=== PATIENT | male | born 1955 | race Caucasian/White ===

== ENCOUNTER → 2017-11-19 | Outpatient (CLI) | payer MEDICARE ==
[2017-11-19 09:08] LABS: CH 33.2; CHCM 34.4; HCT 43.5 % (39.0-53.0); HDW 2.78; HGB 14.6 gm/dL (13.0-17.5); MCH 32.6 pg (25.0-35.0); MCHC 33.6 g/dL (31.0-37.0); Mean Platelet Volume 7.2; RBC 4.49 m/uL (4.30-5.90); RDW 12.5 % (11.5-15.5); WBC 9.1 k/uL (3.8-10.6)
[2017-11-19 10:55] LABS: ALT 34 U/L (21-72); AST 38 U/L (17-59); Alkaline Phosphatase 97 U/L (38-126); Anion Gap 7 mmol/L; Blood Urea Nitrogen 18 mg/dL (9-20); Calcium 9.2 mg/dL (8.4-10.2); Carbon Dioxide 34 mmol/L (22-30); Chloride 98 mmol/L (98-107); Cholesterol 175 mg/dL (<200); Glucose 103 mg/dL (74-99); HDL Cholesterol 50 mg/dL (40-60); Non-African American GFR(MDRD) >60 (>60 ml/min/1.73 sqM); Potassium 4.5 mmol/L (3.5-5.1); Sodium 139 mmol/L (137-145); Total Bilirubin 0.5 mg/dL (0.2-1.3); Total Protein 6.9 g/dL (6.3-8.2)
[2017-11-19 16:54] LABS: Urine Creatinine 106.5 mg/dL
== END | disposition home or self-care (01) ==
LOC: LABWHC1 08:40
PROVIDERS: ATTEND Family Medicine
DX: I12.9 Hypertensive chronic kidney disease with stage 1 through stage 4 chronic kidney disease, or unspecified chronic kidney disease (principal); N18.9 Chronic kidney disease, unspecified; E78.2 Mixed hyperlipidemia; Z12.5 Encounter for screening for malignant neoplasm of prostate
CPT/HCPCS: 80061; 80053; 84443; 85027; 82043; 82570; 36415; G0103

== ENCOUNTER 2019-02-12 07:16 | Emergency (ER) | payer MEDICARE ==
[2019-02-12 07:31] VITALS: RESP 18
[2019-02-12] MEDS ORDERED: MORPHINE SULFATE 4 MG/ML SYRINGE IM STA (07:42)
--- NOTE | 2019-02-12 07:45 | ED ---
General Adult HPI - General Chief complaint: Fall Stated complaint: Fall/Knee Pain Time Seen by Provider: 02/12/19 07:32 Source: patient Mode of arrival: wheelchair Limitations: no limitations - History of Present Illness Initial comments: Dictation was produced using [employer] dictation software. please excuse any grammatical, word or spelling errors. Chief Complaint: 63-year-old male with past medical history of chronic pain secondary to degenerative back disease presents with right knee pain after fall. History of Present Illness: Patient 63-year-old male approximated 3 days ago he was fixing his motorcycle when he slipped. He states he landed on the front of his right knee. Patient was able to ambulate after the incident. Yesterday he states his pain progressively increased to the point were significant difficulties ambulating. Patient complains of point tenderness to the right anterior knee and right medial knee. Patient also complains of reproducible pain with knee flexion. Patient has history of multiple knee surgeries to bilateral knees. Denies any numbness or paresthesias to the bilateral extre mities The ROS documented in this emergency department record has been reviewed and confirmed by me. Those systems with pertinent positive or negative responses have been documented in the HPI. All other systems are other negative and/or noncontributory. PHYSICAL EXAM: General Impression: Alert and oriented x3, acute distress secondary to pain HEENT: Normocephalic atraumatic, extra-ocular movements intact, pupils equal and reactive to light bilaterally, mucous membranes moist. Cardiovascular: Heart regular rate and rhythm, S1&S2 audible, no murmurs, rubs or gallops Chest: Lungs clear to auscultation bilaterally, no rhonchi, no wheeze, no rales Abdomen: Bowel sounds present, abdomen soft, non-tender, non-distended, no organomegaly Musculoskeletal: Pulses present and equal in all extremities, no peripheral edema Motor: no focal deficits noted Neurological: CN II-XII grossly intact, no focal motor or sensory deficits noted Skin: Intact with no visualized rashes Psych: Normal affect and mood Right knee: Point tenderness to the patella and medial collateral ligament. Mild effusion when compared to the left knee. Completely x-ray was obtained showing no acute traumatic injuries. clinical presentation consistent with severe knee contusion. Patient placed in a knee immobilizer. Told to rest, ice and keep the knee elevated. Patient does have an established orthopedic surgeo n. Patient told to follow up with that surgeon early next week. Patient given prescription for analgesic medication to supplement his daily pain medication. Patient understandable and agreeable to plan. Patient has crutches at home. ED course: 63-year-old male presents with knee after incident 3 days ago. All signs upon arrival are within acceptable limits. - Related Data Previous Rx's Medication Instructions Recorded Morphine Sulfate Ir [MSIR] 15 mg PO Q6HR PRN 3 Days #6 tab 02/12/19 Allergies Allergy/AdvReac Type Severity Reaction Status Date / Time Penicillins Allergy Unknown Verified 02/12/19 08:17 Childhood Review of Systems ROS Statement: Those systems with pertinent positive or pertinent negative responses have been documented in the HPI. ROS Other: All systems not noted in ROS Statement are negative. Past Medical History Past Medical History: Hypertension Additional Past Medical History / Comment(s): chronic back pain History of Any Multi-Drug Resistant Organisms: None Reported Past Surgical History: Back Surgery, Orthopedic Surgery Past Psychological History: No Psychological Hx Reported Smoking Status: Former smoker Past Alcohol Use History: Occasional Past Drug Use History: None Reported General Exam Limitations: no limitations Course Vital Signs 02/12/19 07:27 Temperature 98.7 F Pulse Rate 65 Respiratory 18 Rate Blood Pressure 108/64 O2 Sat by Pulse 96 Oximetry Disposition Clinical Impression: Knee contusion Disposition: HOME SELF-CARE Condition: Good Instructions (If sedation given, give patient instructions): Knee Pain (ED) Additional Instructions: follow up with established orthopedic surgeon Prescriptions: Morphine Sulfate Ir [MSIR] 15 mg PO Q6HR PRN 3 Days #6 tab PRN Reason: Pain Is patient prescribed a controlled substance at d/c from ED?: Yes If prescribed controlled substance>3 days was MAPS reviewed?: Prescribed <3 Days Referrals: Robel Langley DO [Primary Care Provider] - 1-2 days Time of Disposition: 08:40
--- NOTE | 2019-02-12 08:06 | XR ---
EXAMINATION TYPE: XR knee complete RT , 3 VIEWS DATE OF EXAM ORDERED: 02/12/2019 HISTORY: Pain. COMPARISON: None. FINDINGS: There has been a previous anterior cruciate ligament repair. There is remodeling changes in both the medial and lateral compartments as well as to lesser extent t he patellofemoral joint. There is a prominent joint effusion. There is medial joint space loss. No ac [place] osseous lesion is seen. IMPRESSION: 1. NO ACUTE OSSEOUS LESION. 2. EVIDENCE OF OSTEOARTHRITIS. 3. POSTSURGICAL CHANGE.
[2019-02-12 09:01] VITALS: BP 111/63; PULSE 81; TEMP 97.9
== END 2019-02-12 09:00 | disposition home or self-care (01) ==
LOC: EC 07:16
DX: S80.01XA Contusion of right knee, initial encounter (principal); Z88.0 Allergy status to penicillin; Z98.890 Other specified postprocedural states; Z87.891 Personal history of nicotine dependence; W20.8XXA Other cause of strike by thrown, projected or falling object, initial encounter; Y93.89 Activity, other specified; Y92.009 Unspecified place in unspecified non-institutional (private) residence as the place of occurrence of the external cause
CPT/HCPCS: 73562; 99283; 96372; L1830; J2270

== ENCOUNTER 2019-12-15 11:13 | Emergency (ER) | payer MEDICARE ==
[2019-12-15 11:50] VITALS: BP 138/77; PULSE 69; RESP 19; TEMP 98.1
[2019-12-15] MEDS ORDERED: HYDROcodone/APAP 7.5-325MG 1 EACH TAB PO ONE (13:01)
--- NOTE | 2019-12-15 13:22 | XR ---
Left shoulder HISTORY: Pain 3 views of the left shoulder Mild acromioclavicular joint arthropathy is present. Bone mineralization may be slightly reduced. Ali gnment and joint spaces are maintained. No fracture or dislocation. Left lung apex as visualized is n ormal. IMPRESSION: Acromioclavicular joint arthropathy. Suspect osteopenia.
--- NOTE | 2019-12-15 13:41 | ED ---
General Adult HPI - General Chief complaint: Extremity Injury, Upper Stated complaint: lt shoulder pain Time Seen by Provider: 12/15/19 12:45 Source: patient, RN notes reviewed, old records reviewed Mode of arrival: ambulatory Limitations: no limitations - History of Present Illness Initial comments: 64-year-old male patient past history significant for chronic back pain presents to ED for cheif complaint of left shoulder injury. Patient reports he as getting off a reclining chair yesterday when he pushed up with his left arm and felt a pop and pain in his left shoulder. Patient reports that he has pain in his left anterior shoulder and decreased range of motion secondary to pain. Denies any pain or any other places. Denies any fall. Denies any other complaints. Systemic: Pt denies fatigue, fever/chills, rash. Pt denies weakness, night sweats, weight loss. Neuro: Pt denies headache, visual disturbances, syncope or pre-syncope. HEENT: Pt denies ocular discharge or irritation, otalgia, rhinorrhea, pharyngitis or notable lymphadenopathy. Cardiopulmonary: Pt denies chest pain, SOB, heart palpitations, dyspnea on exertion. Abdominal/GI: Pt denies abdominal pain, n/v/d. : Pt denies dysuria, burning w/ urination, frequency/urgency. Denies new onset urinary or bowel incontinence. MSK: Pt denies loss of strength or function in extremities. Neuro: Pt denies new onset weakness, paresthesias. - Related Data Previous Rx's Medication Instructions Recorded Morphine Sulfate Ir [MSIR] 15 mg PO Q6HR PRN 3 Days #6 tab 02/12/19 Allergies Allergy/AdvReac Type Severity Reaction Status Date / Time Penicillins Allergy Unknown Verified 02/12/19 08:17 Childhood Review of Systems ROS Statement: Those systems with pertinent positive or pertinent negative responses have been documented in the HPI. ROS Other: All systems not noted in ROS Statement are negative. Past Medical History Past Medical History: Hypertension Additional Past Medical History / Comment(s): chronic back pain History of Any Multi-Drug Resistant Organisms: None Reported Past Surgical History: Back Surgery, Orthopedic Surgery Past Psychological History: No Psychological Hx Reported Smoking Status: Former smoker Past Alcohol Use History: Occasional Past Drug Use History: Marijuana General Exam - General Exam Comments Initial Comments: Constitutional: NAD, AOX3, Pt has pleasant affect. HEENT: NC/AT, trachea midline, neck supple, no lymphadenopathy. Posterior pharynx non erythematous, without exudates. External ears appear normal, without discharge. Mucous membranes moist. Eyes PERRLA, EOM intact. There is no scleral icterus. No pallor noted. Cardiopulmonary: RRR, no murmurs, rubs or gallops, no JVD noted. Lungs CTAB in anterior and posterior andrew. No peripheral edema. Abdominal exam: Abdomen soft and non-distended. Abdomen non-tender to palpation in all 4 quadrants. Bowel sounds active in LLQ. No hepatosplenomegaly. No ecchymosis Neuro: CN II-XII grossly intact. No nuchal rigidity. No raccon eyes, no burks sign, no hemotympanum. No cervical spinal tenderness. MSK: Left anterior shoulder is mildly tender to palpation. Range of motion limited secondary to discomfort. Neurovascularly intact. No other areas of tenderness on upper extremity. No posterior calf tenderness bilaterally, homans sign negative bilaterally. Posterior tibialis and radial pulse +2 bilaterally. Sensation intact in upper and lower extremities. Full active ROM in right upper extremity and lower extremities. Limitations: no limitations Course Vital Signs 12/15/19 11:49 Temperature 98.1 F Pulse Rate 69 Respiratory 19 Rate Blood Pressure 138/77 O2 Sat by Pulse 95 Oximetry Medical Decision Making - Medical Decision Making 64-year-old male patient past history significant for chronic back pain presents to ED for cheif complaint of left shoulder injury. Patient reports he as getting off a reclining chair yesterday when he pushed up with his left arm and felt a pop and pain in his left shoulder. Patient reports that he has pain in his left anterior shoulder and decreased range of motion secondary to pain. Denies any pain or any other places. Denies any fall. Denies any other complaints. Patient will signs are stable, afebrile. Physical exam displayed: Left anterior shoulder is mildly tender to palpation. Range of motion limited secondary to discomfort. Neurovascularly intact. No other areas of tenderness on upper extremity. Chest x-ray displayed acromioclavicular joint arthropathy. Osteopenia. Patient likely secondary to rotator cuff injury. Patient discharged with outpatient orthopedic follow-up. Case discussed with Dr. Chavez Disposition Clinical Impression: Shoulder sprain Disposition: HOME SELF-CARE Instructions (If sedation given, give patient instructions): Shoulder Sprain (ED) Additional Instructions: Follow-up with primary care provider tomorrow. Follow with orthopedic consult tomorrow. May use home pain medication for discomfort. Return to ER if condition worsens. Is patient prescribed a controlled substance at d/c from ED?: No Referrals: Robel Langley DO [Primary Care Provider] - 1-2 days iBmal Louis MD [STAFF PHYSICIAN] - 1-2 days
[2019-12-15] MEDS ORDERED: ACET/COD 300 MG/30 MG STARTER PACK 6 TAB BTL PO STA (13:50)
--- NOTE | 2019-12-15 13:51 | ED ---
Disposition Clinical Impression: Shoulder sprain Disposition: HOME SELF-CARE Instructions (If sedation given, give patient instructions): Shoulder Sprain (ED) Additional Instructions: Follow-up with primary care provider tomorrow. Follow with orthopedic consult tomorrow. May use home pain medication for discomfort. Do not use Tylenol 3 with [place]. Must use one or the other. Return to ER if condition worsens. Is patient prescribed a controlled substance at d/c from ED?: No Referrals: Robel Langley DO [Primary Care Provider] - 1-2 days Bimal Louis MD [STAFF PHYSICIAN] - 1-2 days
== END 2019-12-15 14:00 | disposition home or self-care (01) ==
LOC: EC 11:13
DX: S43.402A Unspecified sprain of left shoulder joint, initial encounter (principal); M19.012 Primary osteoarthritis, left shoulder; Z87.891 Personal history of nicotine dependence; Z88.0 Allergy status to penicillin; X50.9XXA Other and unspecified overexertion or strenuous movements or postures, initial encounter; Y93.89 Activity, other specified
CPT/HCPCS: 99284

== ENCOUNTER 2020-01-17 11:52 | Day surgery (SDC) | payer MEDICARE ==
[2020-01-12 14:17] VITALS: BMI 44.7
--- NOTE | 2020-01-16 11:38 | HP ---
HISTORY AND PHYSICAL CHIEF COMPLAINT: Left shoulder pain. HISTORY OF PRESENT ILLNESS: The patient is a 64-year-old, left-hand dominant, retired male who presents with left shoulder pain after a recent injury. He notes he was lifting himself out of a chair when he felt a pop in his shoulder. He has had pain ever since. He is having pain with overhead use and at night. He has tried medications and conservative modalities without much relief. PAST MEDICAL HISTORY: Significant for hypertension, seizures, depression, and arthritis along with reflux esophagitis, depression. PAST SURGICAL HISTORY: Significant for bilateral carpal tunnel release, bilateral total hip arthroplasty, previous lumbar spine surgery, and appendectomy. CURRENT MEDICATIONS: Atenolol, [place], Requip, Ultram. ALLERGIES: HE HAS ALLERGIES TO PENICILLIN. FAMILY HISTORY: Significant for cancer. SOCIAL HISTORY: Significant for previous tobacco use in addition to daily alcohol use. REVIEW OF SYSTEMS: Sixteen-point review of systems otherwise reviewed and is noncontributory. PHYSICAL EXAMINATION: On examination, the patient is approximately 6 feet tall, 300 pounds, of endomorphic habitus. HEENT examination is nonfocal. Neck is supple. On examination of his left shoulder, he is tender about the anterior subacromial space. He has moderate subacromial crepitus. Active range of motion: Forward elevation 50 degrees external rotation with arm at side, 20 degrees internal rotation to the buttock. Passively, I am able to forward elevate him to 140 degrees. He has marked guarding. Impingement test, Neer test, Speed test are positive. He does have some pain with cross body adduction. His distal neurovascular examination appears intact in the left upper extremity. RADIOLOGIC DATA: MRI scan report left shoulder was reviewed and shows a rotator cuff tear along with bicipital tendinosis. IMPRESSION: 1. Acute left rotator cuff tear - symptomatic. 2. Left proximal bicipital tendinosis. 3. Left acromioclavicular joint arthritis. RECOMMENDATIONS: I talked to the patient at length regarding his condition along with treatment options. At this point, he is quite symptomatic and limited after this acute injury despite conservative measures. After thorough discussion, he opts to proceed with surgery. We will plan to proceed with left shoulder arthroscopy with subacromial decompression, possible rotator cuff repair versus debridement, possible biceps tenotomy, and possible distal clavicular resection. We will likely perform that as an outpatient procedure. Risks and benefits were discussed at length in layman's terms. MMODL / IJN: [id number] /
[~2020-01-17 11:52] MED LIST: HYDROmorphone 0.5 MG/0.5 ML SYRINGE IVP PRN; LACTATED RINGERS 1,000 ML IV SCH; LIDOCAINE 1% 20 ML VIAL (10MG/ML) FOR IV START INTRADERMA PRN; ONDANSETRON 4 MG/2 ML VIAL IVP ONE; ceFAZolin 3 GM in SODIUM CHLORIDE 0.9% 100 ML IVPB ONE
[2020-01-17] MEDS ORDERED: CLINDAMYCIN 900 MG in DEXTROSE 5% IN WATER 50 ML IVPB STA ×2 (12:08)
[2020-01-17] MEDS ORDERED: DEXAMETHASONE SOD PHOSPHATE 10 MG/ML 1 ML VIAL IV ONE (12:26)
[2020-01-17] MEDS ORDERED: MIDAZOLAM 2 MG/2 ML VIAL IVP ONE ×2 (12:41)
[2020-01-17] MEDS ORDERED: fentaNYL (PF) 50 MCG/ML 2 ML AMP IVP ONE ×2 (12:41)
[2020-01-17] MEDS ORDERED: PROPOFOL 10 MG/ML 20 ML VIAL IV ONE (13:11)
[2020-01-17] MEDS ORDERED: PHENYLEPHRINE-0.9% NACL SYG 1 MG/10 ML SYRINGE ONE (13:11)
[2020-01-17] MEDS ORDERED: SUCCINYLCHOLINE CHLORIDE VIAL 200 MG/10 ML VIAL IV ONE (13:11)
[2020-01-17] MEDS ORDERED: ePHEDrine SULFATE/0.9% NACL/PF 50 MG/5 ML SYRINGE IV ONE (13:11)
[2020-01-17] MEDS ORDERED: fentaNYL (PF) 50 MCG/ML 2 ML AMP ONE (13:11)
[2020-01-17] MEDS ORDERED: DEXAMETHASONE SOD PHOSPHATE 4 MG/ML 1 ML VIAL ONE (13:11)
[2020-01-17] MEDS ORDERED: LIDOCAINE 1% INJ 10MG/ML (20 ML MDV) ONE (13:11)
[2020-01-17] MEDS ORDERED: ROPIVACAINE 5 MG/ML 30 ML VIAL ONE (13:11)
--- NOTE | 2020-01-17 13:33 | P.ANPRN ---
Procedure Note - Anesthesia - Nerve Block Performed Left Interscalene Single Time Out Performed: Yes Date of Procedure: 01/17/20 Procedure Start Time: 12:40 Procedure Stop Time: 12:55 Location of Patient: PreOp Indication: Acute Post-Operative Pain, Requested by Surgeon Specifically requested for management of pain by DrAliya: Bimal Louis Sedation Type: Sedate with meaningful contact maintained Preparation: Sterile Prep Position: Supine Catheter: None Needle Types: Pajunk Needle Gauge: 21 Ultrasound used to visualize needle placement: Yes Ultrasound used to observe medication spread: Yes Injectate: 0.5% Ropivacaine (see comment for volume) (20 cc) Blood Aspirated: No Pain Paresthesia on Injection Noted: No Resistance on Injection: Normal Image Stored and Saved: Yes Events: Uneventful and Well Tolerated
[2020-01-17] MEDS ORDERED: EPINEPHrine (PF) 1 ML in SODIUM CHLORIDE 0.9% IRRIGATIO 3,000 ML IRRIGATION ONE ×8 (13:46)
[2020-01-17] MEDS ORDERED: LACTATED RINGERS 1,000 ML IV ONE (15:18)
--- NOTE | 2020-01-17 15:22 | P.OP ---
Date of Procedure: 01/17/20 Preoperative Diagnosis: Symptomatic left rotator cuff tear Postoperative Diagnosis: 4 cm left rotator cuff tear with retraction, high-grade partial-thickness tear long head of the biceps Procedure(s) Performed: Left shoulder arthroscopic subacromial decompression/rotator cuff repair/biceps tenotomy Implants: Arthrex 5.5 mm swivel lock anchor 4 Anesthesia: kamala ELIZALDE Surgeon: Bimal Louis Butt Presser #1: Miguel Angel Blackwood Estimated Blood Loss (ml): 10 Pathology: none sent Condition: stable Disposition: PACU Indications for Procedure: The patient's a 64-year-old [id number] male who presents after injuring his left shoulder recently with persistent pain and weakness despite conservative measures. A discussion of the risks and benefits of operative intervention versus continued conservative measures was made with the patient. He opted to proceed with surgery. Operative risks to include infection, neurovascular injury, development of blood clots, possible tendon rerupture, possible postoperative stiffness and need for subsequent procedures was discussed. Informed consent was obtained. Operative Findings: As below Description of Procedure: The patient was brought to the operating room, and after induction of general anesthesia was placed in a beachchair position. A preoperative interscalene block was placed for postoperative analgesia. I examined the left shoulder. There was no gross block to passive motion or gross glenohumeral instability. The left upper extremity was prepped and draped in normal fashion. The bony outlines the acromion, distal clavicle, and coracoid process were outlined with a skin marker. The glenohumeral joint was inflated with 50 mL of saline utilizing a spinal needle from posterior approach. A posterior portal was made through a 5 mm skin incision 1 cm medial and inferior to the posterior lateral border time. A blunt trocar was used to easily into the joint. Diagnostic arthroscopy was performed. An anterior portal was made just lateral to the coracoid process entering the joint above the subscapularis tendon. The subscapularis tendon appeared to be intact. Anterior labrum was intact. The inferior recess was inspected. The posterior labrum was intact. There was a high-grade partial-thickness tear of the long head of the biceps involving interarticular portion. It was elected to proceed with release at this point. This was released from the superior labrum with electrocautery and was allowed to retract to the bicipital groove. On inspection the rotator cuff, a large 4 cm tear involving the supraspinatus and infraspinatus was noted and was retracted almost to the glenoid. A lateral portal was made 2 centimeters inferior to the anterior lateral border of the acromion. The rotator cuff was then mobilized with a traction suture. This was then brought back to the greater tuberosity. The soft tissue on the undersurface of the acromion was debrided with a motorized shaver and electrocautery clearly defining the anterior medial and lateral borders as well as the distal clavicle. An anterior inferior acromioplasty was performed with a motorized doris starting anterolateral, then extending this posteriorly, then extending this medially. I converted to a flat acromion and this was verified in the posterior and lateral viewing portals. The greater tuberosity was lightly decorticating with a shaver down to a bleeding bony surface. An accessory superior lateral portal was made just off the lateral edge of the acromion for anchor placement. 2 anchors were then placed just off the articular surface with the appropriate starting awl. 5.5 mm anchors preloaded with #2 fiber tape were placed. Good purchase was obtained. These fiber tapes were then passed the rotator cuff with a scorpion suture passer. A lateral row was created crisscrossing these tapes. 5.5 mm swivel lock anchors x 2 were placed laterally. Good purchase was obtained. Final arthroscopic view showed adequate compression at the footprint. The arthroscope was then removed. The portals were closed with simple 3-0 nylon sutures. A sterile dressing was applied in addition to an abductor brace. The patient was then awoken from general anesthesia and transferred to recovery room in good condition. Blood loss was estimated at 10 mL. No complications were incurred. Sponge and needle counts were correct in the case. Sam DONOVAN assisted and the major components of the case to include arm positioning, anchor placement, and rotator cuff repair.
[2020-01-17 15:44] VITALS: TEMP 97.2
[2020-01-17 16:40] VITALS: BP 138/80; PULSE 84; RESP 20
== END 2020-01-17 17:00 | disposition home or self-care (01) ==
LOC: OR 11:52
PROVIDERS: ATTEND Orthopaedic Surgery
DX: M75.102 Unspecified rotator cuff tear or rupture of left shoulder, not specified as traumatic (principal); S46.112A Strain of muscle, fascia and tendon of long head of biceps, left arm, initial encounter; X50.0XXA Overexertion from strenuous movement or load, initial encounter; I12.9 Hypertensive chronic kidney disease with stage 1 through stage 4 chronic kidney disease, or unspecified chronic kidney disease; N18.1 Chronic kidney disease, stage 1; F32.9 Major depressive disorder, single episode, unspecified; M19.90 Unspecified osteoarthritis, unspecified site; K21.0 Gastro-esophageal reflux disease with esophagitis; Z96.643 Presence of artificial hip joint, bilateral; Z80.9 Family history of malignant neoplasm, unspecified; G40.401 Other generalized epilepsy and epileptic syndromes, not intractable, with status epilepticus; Z87.891 Personal history of nicotine dependence; G89.29 Other chronic pain; M54.9 Dorsalgia, unspecified; E66.9 Obesity, unspecified; Z68.42 Body mass index [BMI] 45.0-49.9, adult; F41.1 Generalized anxiety disorder; M96.1 Postlaminectomy syndrome, not elsewhere classified; I45.9 Conduction disorder, unspecified; Z96.652 Presence of left artificial knee joint; Z80.8 Family history of malignant neoplasm of other organs or systems; Z80.7 Family history of other malignant neoplasms of lymphoid, hematopoietic and related tissues; Z80.3 Family history of malignant neoplasm of breast; F51.01 Primary insomnia; G25.81 Restless legs syndrome; Z79.891 Long term (current) use of opiate analgesic; Z97.3 Presence of spectacles and contact lenses; Z79.899 Other long term (current) drug therapy; Z91.030 Bee allergy status; Z88.0 Allergy status to penicillin
CPT/HCPCS: 64415; 76942; 29826; 29827; C1713 ×4; J2250; J0330; J1100 ×2; J2405; J0171; J2001; J3010; J2795; J2370; J2704

== ENCOUNTER → 2020-02-02 | Outpatient (CLI) | payer MEDICARE ==
[2020-02-02 10:27] LABS: Basophils # (A) 0.1 k/uL (0-0.2); Basophils % (A) 1 %; Eosinophils # (A) 0.2 k/uL (0-0.7); Eosinophils % (A) 2 %; HCT 40.5 % (39.0-53.0); HGB 13.2 gm/dL (13.0-17.5); Lymphocytes # (A) 1.7 k/uL (1.0-4.8); Lymphocytes % (A) 13 %; MCH 32.1 pg (25.0-35.0); MCHC 32.7 g/dL (31.0-37.0); MCV 98.1 fL (80.0-100.0); Mean Platelet Volume 6.8; Monocytes # (A) 0.9 k/uL (0-1.0); Monocytes % (A) 7 %; Neutrophils # (A) 9.4 k/uL (1.3-7.7); Neutrophils % (A) 75 %; Platelet Count 382 k/uL (150-450); RBC 4.12 m/uL (4.30-5.90); RDW 13.1 % (11.5-15.5); WBC 12.5 k/uL (3.8-10.6)
[2020-02-02 12:51] LABS: Erythrocyte Sedimentation Rate 87 mm/hr (0-15)
== END ==
LOC: LABWHC1 09:30
PROVIDERS: ATTEND Orthopaedic Surgery
DX: M25.519 Pain in unspecified shoulder (principal)
CPT/HCPCS: 36415; 85025; 85652; 86140

== ENCOUNTER 2020-02-03 05:44 | Day surgery (SDC) | payer MEDICARE ==
--- NOTE | 2020-02-02 20:25 | HP ---
HISTORY AND PHYSICAL CHIEF COMPLAINT: Left shoulder pain. HISTORY OF PRESENT ILLNESS: The patient is a 64-year-old [id number] retired gentleman who underwent left shoulder arthroscopic rotator cuff repair on 01/17/2020. He presents with a 2-day history of drainage from one of his portal sites. He notes some low-grade fevers. He has been wearing his brace. PAST MEDICAL HISTORY: Significant for depression, hypertension and seizures. PAST SURGICAL HISTORY: Significant for appendectomy, bilateral carpal tunnel release, bilateral total knee arthroplasty, lumbar spine surgery, in addition to recent left shoulder arthroscopic rotator cuff repair. CURRENT MEDICATIONS: 1. Atenolol. 2. [place]. 3. Requip. 4. Ultram. ALLERGIES: He notes allergies to PENICILLIN. FAMILY HISTORY: Significant for cancer. SOCIAL HISTORY: Significant for social alcohol use. He is a former smoker. REVIEW OF SYSTEMS: Sixteen-point review of systems significant for recent low-grade fevers. PHYSICAL EXAMINATION: The patient is approximately 6 feet tall, 300 pounds of endomorphic habitus. HEENT: Exam is nonfocal. Neck is supple. On examination of his left shoulder, he does have some purulent drainage about the lateral portal site with some surrounding erythema. He has limited range of motion of the left shoulder secondary to pain. His distal neurovascular exam appears intact in the left upper extremity. LABORATORY STUDIES: Laboratory studies show sed rate of 87 along with peripheral white blood cell count of 12.5. IMPRESSION: Status post left shoulder arthroscopic rotator cuff repair with portal site cellulitis, possible deep infection. RECOMMENDATIONS: I talked to the patient and his at length regarding his condition and treatment options. At this point we will plan to proceed with incision and drainage of his left shoulder with probable arthroscopic irrigation and debridement. Risks and benefits were discussed at length in layman's terms. We will likely keep the patient in the hospital after the procedure until cultures finalize and antibiotic treatment is planned. MMODL / IJN: [id number] /
[~2020-02-03 05:44] MED LIST changes: -HYDROmorphone 0.5 MG/0.5 ML SYRINGE IVP PRN; -LACTATED RINGERS 1,000 ML IV SCH; -LIDOCAINE 1% 20 ML VIAL (10MG/ML) FOR IV START INTRADERMA PRN; -ONDANSETRON 4 MG/2 ML VIAL IVP ONE; +Pre Op ABX Message 1 EACH MISC MISCELLANE ONE; -ceFAZolin 3 GM in SODIUM CHLORIDE 0.9% 100 ML IVPB ONE
[2020-02-03] MEDS ORDERED: HYDROmorphone 0.5 MG/0.5 ML SYRINGE IVP PRN (07:52)
[2020-02-03] MEDS ORDERED: DEXAMETHASONE SOD PHOSPHATE 10 MG/ML 1 ML VIAL IV ONE (07:52)
[2020-02-03] MEDS ORDERED: SCOPOLAMINE 1.5MG/72HR PATCH TRANSDERM ONE (07:52)
[2020-02-03] MEDS ORDERED: ONDANSETRON 4 MG/2 ML VIAL IVP ONE (07:52)
[2020-02-03] MEDS ORDERED: LIDOCAINE 1% (10MG/ML) FOR IV START INTRADERMA PRN (07:52)
[2020-02-03] MEDS: LACTATED RINGERS 1,000 ML IV SCH (08:25)
[2020-02-03] MEDS ORDERED: HYDROmorphone 0.5 MG/0.5 ML SYRINGE IVP ONE (08:40)
[2020-02-03] MEDS ORDERED: VANCOMYCIN IV PER PHARMACY 1 EACH MISC MISCELLANE PRN (10:08)
[2020-02-03] MEDS ORDERED: VANCOMYCIN 2,250 MG in SODIUM CHLORIDE 0.9% 500 ML 500 ML IVPB ONE (10:30)
[2020-02-03] MEDS ORDERED: MIDAZOLAM 2 MG/2 ML VIAL ONE (10:43)
[2020-02-03] MEDS ORDERED: ePHEDrine SULFATE/0.9% NACL/PF 50 MG/5 ML SYRINGE IV ONE (10:43)
[2020-02-03] MEDS ORDERED: LIDOCAINE 1% INJ 10MG/ML (20 ML MDV) ONE (10:43)
[2020-02-03] MEDS ORDERED: PROPOFOL 10 MG/ML 20 ML VIAL IV ONE (10:43)
[2020-02-03] MEDS ORDERED: SUCCINYLCHOLINE CHLORIDE VIAL 200 MG/10 ML VIAL IV ONE (10:43)
[2020-02-03] MEDS ORDERED: PHENYLEPHRINE-0.9% NACL SYG 1 MG/10 ML SYRINGE ONE (10:43)
[2020-02-03] MEDS ORDERED: fentaNYL (PF) 50 MCG/ML 2 ML AMP ONE (10:43)
--- NOTE | 2020-02-03 12:05 | P.OP ---
Date of Procedure: 02/03/20 Preoperative Diagnosis: Left shoulder cellulitis/septic arthritis status post arthroscopic rotator cuff repair Postoperative Diagnosis: Same Procedure(s) Performed: Incision and drainage with irrigation and debridement left shoulder/arthroscopic debridement and lavage Anesthesia: FIDE Surgeon: Bimal Louis Hse Advisor #1: Miguel Angel Blackwood Estimated Blood Loss (ml): 10 Pathology: other (Deep cultures) Condition: stable Disposition: PACU Indications for Procedure: The patient's a 64-year-old male who underwent left shoulder arthroscopic rotator cuff repair approximately 2 weeks who presented with a two-day history of progressive pain, swelling, and redness. Upon evaluation he was noted to have an infected portal site. Laboratory studies showed significant elevation of his sed rate and C-reactive protein. He discussion of the risks and benefits of operative intervention was made with patient. He opted to proceed. Operative risks to include persistence of infection and need for subsequent procedures was discussed. Informed consent was obtained. Operative Findings: As below Description of Procedure: The patient was brought to the operating room, and after induction of general anesthesia was placed in the beachchair position. Bony prominences were appropriately padded. The left upper extremity was prepped and draped in normal fashion. Cultures were obtained from the lateral portal and subacromial space. The previous posterior portal was utilized once and medial medial and inferior to the posterior lateral border of the acromion. A blunt trocar was used to easily into the joint. A moderate effusion was encountered. Arthroscopic evaluation showed evidence of marked articular synovitis that was debrided with a motorized shaver. The cartilage surfaces did not appear to be affected. This was copiously irrigated with 6 L of fluid. The rotator cuff appeared intact on the articular surface. The arthroscope was placed in the subacromial space. Again there was marked bursitis debrided with a motorized shaver. The subacromial space was copiously irrigated with 6 L of fluid. Rotator cuff appeared to be intact on the bursal surface. The arthroscope was then removed. The lateral portal was extended proximal a 5 mm and the wound edges sharply debrided with a scalpel. This was further irrigated with saline. The portals were loosely reapproximated with simple 3-0 nylon suture. A sterile dressing was applied in addition to a sling. The patient was awoken from general anesthesia and transferred to the recovery room in fair condition. Blood loss was estimated at 10 mL. No complications were incurred. Sponge and needle counts were correct at the end of the case.
[2020-02-03] MEDS ORDERED: ONDANSETRON 4 MG/2 ML VIAL IVP PRN (12:39)
[2020-02-03] MEDS ORDERED: LACTATED RINGERS 1,000 ML IV ONE (13:00)
[2020-02-03 15:30] LABS: Basophils % (A) 0 %; Eosinophils # (A) 0.1 k/uL (0-0.7); Eosinophils % (A) 1 %; HCT 39.8 % (39.0-53.0); HGB 12.9 gm/dL (13.0-17.5); Lymphocytes % (A) 7 %; MCH 32.1 pg (25.0-35.0); MCHC 32.5 g/dL (31.0-37.0); MCV 98.8 fL (80.0-100.0); Mean Platelet Volume 7.2; Monocytes # (A) 0.4 k/uL (0-1.0); Monocytes % (A) 3 %; Neutrophils # (A) 12.7 k/uL (1.3-7.7); Neutrophils % (A) 88 %; Platelet Count 372 k/uL (150-450); RBC 4.03 m/uL (4.30-5.90); WBC 14.4 k/uL (3.8-10.6)
[2020-02-03] MEDS ORDERED: EPINEPHrine 1 MG/ML 1 ML AMP IM PRN (15:35)
--- NOTE | 2020-02-03 15:40 | P.CONS ---
History of Present Illness - Reason for Consult Leukocytosis - History of Present Illness She is a pleasant 64-year-old male came in for left shoulder incision and drainage/arthroscopic debridement. Patient has a bandage to the left shoulder area. Pain is fairly well-controlled did not pass gas did not move his bowels.. Patient the does have history of sleep apnea and doesn't use any CPAP machine patient denied any fever chills, dysuria. No evidence of any infection at this time Review of Systems REVIEW OF SYSTEMS: CONSTITUTIONAL: No fever, no malaise, no fatigue. HEENT: No recent visual problems or hearing problems. Denied any sore throat. CARDIOVASCULAR: No chest pain, orthopnea, PND, no palpitations, no syncope. PULMONARY: No shortness of breath, no cough, no hemoptysis. GASTROINTESTINAL: No diarrhea, no nausea, no vomiting, no abdominal pain. NEUROLOGICAL: No headaches, no weakness, no numbness. HEMATOLOGICAL: Denies any bleeding or petechiae. GENITOURINARY: Denies any burning micturition, frequency, or urgency. MUSCULOSKELETAL/RHEUMATOLOGICAL: As mentioned in HPI ENDOCRINE: Denies any polyuria or polydipsia. The rest of the 14-point review of systems is negative. Past Medical History Past Medical History: Hypertension Additional Past Medical History / Comment(s): steroid Dec 2019,left shoulder pain,chronic back pain History of Any Multi-Drug Resistant Organisms: None Reported Past Surgical History: Adenoidectomy, Appendectomy, Back Surgery, Joint Replacement, Orthopedic Surgery, Tonsillectomy Additional Past Surgical History / Comment(s): hardware lumbar area,rt knee procedures x7,lt knee proceduresx3,left knee replaced x2,sinus procedures x2, mary carpel tunnel,tendon repair mary hands,mary feet procedures Past Anesthesia/Blood Transfusion Reactions: No Reported Reaction Additional Past Anesthesia/Blood Transfusion Reaction / Comm: no hx blood transfusion Past Psychological History: Anxiety Smoking Status: Former smoker Past Alcohol Use History: Occasional Additional Past Alcohol Use History / Comment(s): quit smoking 1993,smoked ap prox 20 yrs > 1ppd Past Drug Use History: None Reported - Past Family History Mother Family Medical History: Cancer Father Family Medical History: Cancer Medications and Allergies Home Medications Medication Instructions Recorded Confirmed Type Atenolol [Tenormin] 100 mg PO HS 01/12/20 02/03/20 History Citalopram Hydrobromide [CeleXA] 40 mg PO HS 01/12/20 02/03/20 History Cyclobenzaprine [Flexeril] 10 mg PO TID PRN 01/12/20 02/03/20 History Diazepam [Valium] 2 mg PO HS PRN 01/12/20 02/03/20 History EPINEPHrine (Auto Inject) [Epipen] 0.3 mg IM ONCE PRN 01/12/20 02/03/20 History Furosemide [Lasix] 40 mg PO DAILY PRN 01/12/20 02/03/20 History HYDROcodone/APAP 7.5-325MG [[place] 2 tab PO BID PRN 01/12/20 02/03/20 History 7.5-325] Hydrochlorothiazide 25 mg PO HS 01/12/20 02/03/20 History Ibuprofen 800 mg PO Q8H PRN 01/12/20 02/03/20 History Phenytoin Sodium Extended 400 mg PO HS 01/12/20 02/03/20 History [Dilantin] RABEprazole SODIUM [Aciphex] 20 mg PO HS 01/12/20 02/03/20 History rOPINIRole HCL [rOPINIRole HCL ER] 2 mg PO HS 01/12/20 02/03/20 History traMADol HCL [Ultram] 50 mg PO HS PRN 01/12/20 02/03/20 History HYDROcodone/APAP 10-325MG [[place] 1 tab PO Q4HR PRN 7 Days #28 tab 01/17/20 0 02/03/20 Rx 10-325] Allergies Allergy/AdvReac Type Severity Reaction Status Date / Time bee venom protein (honey bee) Allergy Anaphylaxis Verified 02/03/20 08:02 Penicillins Allergy Anaphylaxis Verified 02/03/20 08:02 Physical Exam Vitals: Vital Signs Temp Pulse Pulse Resp BP BP Pulse Ox 02/03/20 13:05 78 16 133/60 97 02/03/20 12:50 82 18 120/59 95 02/03/20 12:35 81 18 124/61 94 L 02/03/20 12:20 84 18 133/64 100 02/03/20 12:12 18 100 02/03/20 12:05 97.8 F 85 18 132/68 99 02/03/20 08:13 97.6 F 68 16 152/78 94 L Intake and Output 02/03/20 02/03/20 02/03/20 06:59 14:59 22:59 Intake Total 1775 Output Total 10 Balance 1765 Intake: IV 1774 Output: Estimated Blood Loss 10 Other: # Voids 1 Weight 156 kg PHYSICAL EXAMINATION: GENERAL: The patient is alert and oriented x3, not in any acute distress. Well developed, well nourished. HEENT: Pupils are round and equally reacting to light. EOMI. No scleral icterus. No conjunctival pallor. Normocephalic, atraumatic. No pharyngeal erythema. No thyromegaly. CARDIOVASCULAR: S1 and S2 present. No murmurs, rubs, or gallops. PULMONARY: Chest is clear to auscultation, no wheezing or crackles. ABDOMEN: Soft, nontender, nondistended, normoactive bowel sounds. No palpable organomegaly. MUSCULOSKELETAL: Left shoulder is postsurgically packed EXTREMITIES: No cyanosis, clubbing, or pedal edema. NEUROLOGICAL: Gross neurological examination did not reveal any focal deficits. SKIN: No rashes. Results CBC & Chem 7: 02/03/20 15:14 Labs: Abnormal Lab Results - Last 24 Hours (Table) 02/03/20 Range/Units 15:14 WBC 14.4 H (3.8-10.6) k/uL RBC 4.03 L (4.30-5.90) m/uL Hgb 12.9 L (13.0-17.5) gm/dL Neutrophils # 12.7 H (1.3-7.7) k/uL Assessment and Plan Plan: -Leukocytosis no evidence of infection will further intervention at this time -Hypertension atenolol will be resumed will hold off on diuretic therapy as patient is receiving IV fluids at this time -Sleep apnea uses CPAP machine at home which will be continued -Anxiety disorder -Left shoulder incision and drainage: Blood cultures cultures are pending and patient is on iv vancomycin which is appropriate
[2020-02-03 15:41] LABS: African American GFR (CKD) >90 (>60 ml/min/1.73 sqM); Anion Gap 9 mmol/L; Blood Urea Nitrogen 13 mg/dL (9-20); C Reactive Protein 40.3 mg/L (<10.0); Carbon Dioxide 29 mmol/L (22-30); Chloride 99 mmol/L (98-107); Glucose 193 mg/dL (74-99); Non-African American GFR(CKD) >90 (>60 ml/min/1.73 sqM); Potassium 4.7 mmol/L (3.5-5.1); Sodium 137 mmol/L (137-145)
[2020-02-03 16:36] LABS: Erythrocyte Sedimentation Rate 90 mm/hr (0-15)
[2020-02-03] MEDS: HYDROcodone/APAP 10-325MG 1 EACH TAB PO PRN ×2 (16:58→22:04)
[2020-02-03] MEDS: ATENOLOL 50 MG TAB PO SCH (20:32)
[2020-02-03] MEDS: CITALOPRAM HYDROBROMIDE 20 MG TAB PO SCH (20:32)
[2020-02-03] MEDS: PHENYTOIN SODIUM EXTENDED 100 MG CAP PO SCH (20:32)
[2020-02-03] MEDS: PANTOPRAZOLE 40 MG TABLET PO SCH (20:32)
[2020-02-03] MEDS: CYCLOBENZAPRINE 10 MG TAB PO PRN (20:35)
[2020-02-03] MEDS: VANCOMYCIN 2,250 MG in SODIUM CHLORIDE 0.9% 500 ML 500 ML IVPB SCH (22:04)
[2020-02-04] MEDS: HYDROcodone/APAP 10-325MG 1 EACH TAB PO PRN ×4 (03:06→19:15)
[2020-02-04] MEDS: CYCLOBENZAPRINE 10 MG TAB PO PRN (05:13)
[2020-02-04] MEDS: LACTATED RINGERS 1,000 ML IV SCH (07:37)
[2020-02-04] MEDS: VANCOMYCIN 2,250 MG in SODIUM CHLORIDE 0.9% 500 ML 500 ML IVPB SCH ×3 (07:37→22:33)
[2020-02-04 08:45] LABS: Basophils # (A) 0.1 k/uL (0-0.2); Basophils % (A) 0 %; Eosinophils # (A) 0.1 k/uL (0-0.7); Eosinophils % (A) 1 %; HCT 38.2 % (39.0-53.0); HGB 12.7 gm/dL (13.0-17.5); Lymphocytes # (A) 2.9 k/uL (1.0-4.8); Lymphocytes % (A) 19 %; MCH 33.1 pg (25.0-35.0); MCHC 33.1 g/dL (31.0-37.0); MCV 99.9 fL (80.0-100.0); Mean Platelet Volume 7.1; Monocytes # (A) 1.4 k/uL (0-1.0); Monocytes % (A) 9 %; Neutrophils # (A) 10.1 k/uL (1.3-7.7); Neutrophils % (A) 67 %; Platelet Count 371 k/uL (150-450); RBC 3.83 m/uL (4.30-5.90); WBC 14.9 k/uL (3.8-10.6)
--- NOTE | 2020-02-04 09:51 | P.PN ---
Subjective Progress Note Date: 02/04/20 Principal diagnosis: Status post incision and drainage with irrigation and debridement left shoulder/left shoulder arthroscopic debridement and lavage Patient was evaluated today at bedside. He's having some generalized pain around the shoulder. Denies any fevers or chills at this time. Utilizing the arm sling. Objective - Vital Signs Vital signs: Vital Signs Temp 98.3 F 02/04/20 07:00 Pulse 64 02/04/20 07:00 Resp 17 02/04/20 07:00 BP 137/78 02/04/20 07:00 Pulse Ox 95 02/04/20 07:00 Intake & Output 02/03/20 02/04/20 02/04/20 18:59 06:59 18:59 Intake Total 1775 296 296 Output Total 10 Balance 1765 296 296 Weight 156 kg Intake: IV 1775 Oral 296 296 Output: Estimated Blood Loss 10 Other: # Voids 1 2 - Exam Left upper extremity: Postoperative management was removed. Portal sites are all closed with one single nylon, there is no active drainage. Erythema has improved. Tenderness with palpation is also improved. Sensation to light touch throughout the upper extremities intact. Radial pulses 2+ - Labs CBC & Chem 7: 02/04/20 07:20 02/03/20 15:14 Labs: Abnormal Lab Results - Last 24 Hours (Table) 02/03/20 02/03/20 02/04/20 Range/Units 15:14 15:14 07:20 WBC 14.4 H 14.9 H (3.8-10.6) k/uL RBC 4.03 L 3.83 L (4.30-5.90) m/uL Hgb 12.9 L 12.7 L (13.0-17.5) gm/dL Hct 38.2 L (39.0-53.0) % Neutrophils # 12.7 H 10.1 H (1.3-7.7) k/uL Monocytes # 1.4 H (0-1.0) k/uL ESR 90 H (0-15) mm/hr Creatinine 0.61 L (0.66-1.25) mg/dL Glucose 193 H (74-99) mg/dL C-Reactive Protein 40.3 H (<10.0) mg/L Microbiology - Last 24 Hours (Table) 02/03/20 11:50 Gram Stain - Preliminary Shoulder - Left Wound Culture - Preliminary 02/03/20 11:50 Gram Stain - Preliminary Shoulder - Left Wound Culture - Preliminary 02/03/20 11:50 Anaerobic Culture - Preliminary Shoulder - Left 02/03/20 11:50 Anaerobic Culture - Preliminary Shoulder - Left Assessment and Plan Plan: Assessment: Left shoulder cellulitis/septic arthritis Status post incision and drainage is irrigation and debridement left shoulder/left shoulder arthroscopic debridement and lavage Plan: Continue daily dressing changes Continue use of the arm sling Ice the shoulder often Pain control, will adjust oral medication Continue current IV antibiotics Infectious disease recommendations Internal medicine recommendations Anticipate continuation of inpatient stay until cultures are finalized and antibiotic choices made Time with Patient: Less than 30
--- NOTE | 2020-02-04 10:09 | CONS ---
CONSULTATION DATE OF SERVICE: 02/03/2020 REASON FOR CONSULTATION: Left shoulder septic arthritis. HISTORY OF PRESENT ILLNESS: The patient is a 64-year-old male who underwent left shoulder arthroscopic rotator cuff repair on January 17, 2020. The patient is presenting back to his orthopedic surgeon with a 2-day history of drainage from one of his portal sites along with low-grade fever. The patient has also been complaining of pain to the left shoulder area to be more often throbbing in nature, intensity almost 10/10 in severity. The patient is complaining of low-grade fever. Denies having any URI symptoms. No chest pain, shortness of breath or cough. No nausea or vomiting. No abdominal pain. No diarrhea. With these symptoms, the patient was evaluated and subsequently has been admitted to hospital and was taken to the OR, where he had I&D and debridement of the left shoulder and lavage. Wound culture has been obtained. The patient received a dose of vancomycin and has been admitted to the hospital. Infectious Disease was consulted for further recommendations regarding antibiotic. Patient with no fever during this admission. He did have elevated white count of 14,000 with an elevated sed rate and CRP. REVIEW OF SYSTEMS: Positive points have been mentioned in HPI. Rest of the systems are negative. PAST MEDICAL HISTORY: Significant for depression, hypertension, seizure disorder, osteoarthritis. PAST SURGICAL HISTORY: Appendectomy, bilateral carpal tunnel release, bilateral knee arthroplasty, lumbar spine surgery and recent left shoulder rotator cuff repair. SOCIAL HISTORY: Patient denies smoking. Social drinker. No drug use. FAMILY HISTORY: Positive for cancer. ALLERGIES: PENICILLIN with history of rash. No history of anaphylaxis. CURRENT MEDICATIONS: The patient is currently on [place], Tenormin, Celexa, Flexeril, Dilaudid, Zofran, Protonix, Dilantin, Requip and vancomycin, Pharmacy to dose. PHYSICAL EXAMINATION: Blood pressure 131/68, pulse of 85, temperature 98.7. General description is an elderly male up in the chair in no distress. No tachypnea or accessory muscle of respiration use. HEENT examination shows no pallor or scleral icterus. Oral mucosa membrane is dry. No pharyngeal erythema or thrush. NECK: Trachea is central. No thyromegaly. LUNGS: Unlabored breathing. Clear to auscultation anteriorly. No wheeze or crackle. HEART: S1, S2. Regular rate and rhythm. ABDOMEN: Soft. No tenderness. No guarding or rigidity. EXTREMITIES: No edema of the feet. The left shoulder is currently dressed up. No obvious drainage on the dressing. LABS: Hemoglobin is 12.9, white count 14.4. Sed rate is 90, creatinine 0.61, and CRP 40.3. DIAGNOSTIC IMPRESSION AND PLAN: Patient with left shoulder infection in this patient who did have a recent left rotator cuff repair with recent surgery, subsequently developing infection from one of the ports. That has been debrided. Will likely need to cover for the Gram-positive skin amanda, especially MRSA to be likely present, responsible for this infection. With the patient's PENICILLIN ALLERGY, that will limit the number of antibiotics safe to use. PLAN: 1. Vancomycin, Pharmacy to dose. Start while waiting for the culture to finalize. 2. Blood cultures x2. 3. We will follow his clinical condition and cultures to further adjust medication if needed. Thank you for this consultation. Will follow this patient along with you. MMODL / IJN: [id number] /
[2020-02-04] MEDS: traMADol 50 MG TAB PO SCH ×3 (11:14→21:29)
[2020-02-04] MEDS ORDERED: SENNOSIDES 8.6 MG TAB PO PRN (11:55)
[2020-02-04] MEDS: POLYETHYLENE GLYCOL 3350 17 GM POWD.PACK PO SCH (12:12)
--- NOTE | 2020-02-04 12:28 | P.PN ---
Subjective Principal diagnosis: PHYSICAL EXAMINATION: GENERAL: The patient is alert and oriented x3, not in any acute distress. Well developed, well nourished. HEENT: Pupils are round and equally reacting to light. EOMI. No scleral icterus. No conjunctival pallor. Normocephalic, atraumatic. No pharyngeal erythema. No thyromegaly. CARDIOVASCULAR: S1 and S2 present. No murmurs, rubs, or gallops. PULMONARY: Chest is clear to auscultation, no wheezing or crackles. ABDOMEN: Soft, nontender, nondistended, normoactive bowel sounds. No palpable organomegaly. MUSCULOSKELETAL: Left shoulder is postsurgically packed EXTREMITIES: No cyanosis, clubbing, or pedal edema. NEUROLOGICAL: Gross neurological examination did not reveal any focal deficits. SKIN: No rashes. No overnight events patient is coming of constipation. Ordered Senna and MiraLAX. Constitutional: Denied any fatigue denied any fever. Cardio vascular: denied any chest pain, palpitations Gastrointestinal denied any nausea vomiting Pulmonary: Denied any shortness of breath cough Neurologic denied any new focal deficits All inpatient medications were reviewed and appropriate changes in these medications as dictated in the interval history and assessment and plan. Objective - Vital Signs Vital signs: Vital Signs Temp 98.3 F 02/04/20 07:00 Pulse 64 02/04/20 07:00 Resp 17 02/04/20 08:00 BP 137/78 02/04/20 07:00 Pulse Ox 95 02/04/20 07:00 Intake & Output 02/03/20 02/04/20 02/04/20 18:59 06:59 18:59 Intake Total 1775 296 296 Output Total 10 Balance 1765 296 296 Weight 156 kg Intake: IV 1775 Oral 296 296 Output: Estimated Blood Loss 10 Other: # Voids 1 2 - Exam PHYSICAL EXAMINATION: GENERAL: The patient is alert and oriented x3, not in any acute distress. Well developed, well nourished. HEENT: Pupils are round and equally reacting to light. EOMI. No scleral icterus. No conjunctival pallor. Normocephalic, atraumatic. No pharyngeal erythema. No thyromegaly. CARDIOVASCULAR: S1 and S2 present. No murmurs, rubs, or gallops. PULMONARY: Chest is clear to auscultation, no wheezing or crackles. ABDOMEN: Soft, nontender, nondistended, normoactive bowel sounds. No palpable organomegaly. MUSCULOSKELETAL: Left shoulder is postsurgically packed EXTREMITIES: No cyanosis, clubbing, or pedal edema. NEUROLOGICAL: Gross neurological examination did not reveal any focal deficits. SKIN: No rashes. - Labs CBC & Chem 7: 02/04/20 07:20 02/03/20 15:14 Labs: Abnormal Lab Results - Last 24 Hours (Table) 02/03/20 02/03/20 02/04/20 Range/Units 15:14 15:14 07:20 WBC 14.4 H 14.9 H (3.8-10.6) k/uL RBC 4.03 L 3.83 L (4.30-5.90) m/uL Hgb 12.9 L 12.7 L (13.0-17.5) gm/dL Hct 38.2 L (39.0-53.0) % Neutrophils # 12.7 H 10.1 H (1.3-7.7) k/uL Monocytes # 1.4 H (0-1.0) k/uL ESR 90 H (0-15) mm/hr Creatinine 0.61 L (0.66-1.25) mg/dL Glucose 193 H (74-99) mg/dL C-Reactive Protein 40.3 H (<10.0) mg/L Microbiology - Last 24 Hours (Table) 02/03/20 11:50 Gram Stain - Preliminary Shoulder - Left Wound Culture - Preliminary 02/03/20 11:50 Gram Stain - Preliminary Shoulder - Left Wound Culture - Preliminary 02/03/20 11:50 Anaerobic Culture - Preliminary Shoulder - Left 02/03/20 11:50 Anaerobic Culture - Preliminary Shoulder - Left Assessment and Plan Plan: -Leukocytosis no evidence of infection will further intervention at this time -Hypertension atenolol will be resumed will hold off on diuretic therapy as patient is receiving IV fluids at this time -Sleep apnea uses CPAP machine at home which will be continued -Constipation secondary to opiates, patient will be started on senna and MiraLAX. -Anxiety disorder -Left shoulder incision and drainage: Blood cultures cultures are pending and patient is on iv vancomycin which is appropriate. Wound cultures have so for negative
--- NOTE | 2020-02-04 17:21 | PN ---
PROGRESS NOTE DATE OF SERVICE: 02/04/2020 REASON FOR FOLLOWUP: Left shoulder septic arthritis. INTERVAL HISTORY: The patient is currently afebrile. The patient's pain is currently controlled. The patient denies having any chest pain, shortness of breath or cough. No nausea, no vomiting. No abdominal pain or diarrhea. PHYSICAL EXAMINATION: Blood pressure 137/78 with a pulse of 64, temperature 98.3. He is 95% on room air. General description is an elderly male lying in bed in no distress. RESPIRATORY SYSTEM: Unlabored breathing. Clear to auscultation anteriorly. HEART: S1, S2. Regular rate and rhythm. ABDOMEN: Soft. No tenderness. LABS: Cultures are currently pending. DIAGNOSTIC IMPRESSION AND PLAN: Patient with left shoulder septic arthritis in this patient who did have recent rotator cuff surgery, status post washout of his left shoulder. Cultures are currently pending. Patient is currently on vancomycin. Discharge antibiotics will depend upon the cultures of wound. Continue supportive care. MMODL / IJN: [id number] /
[2020-02-04] MEDS: CITALOPRAM HYDROBROMIDE 20 MG TAB PO SCH (20:53)
[2020-02-04] MEDS: ATENOLOL 50 MG TAB PO SCH (20:53)
[2020-02-04] MEDS: PANTOPRAZOLE 40 MG TABLET PO SCH (20:53)
[2020-02-04] MEDS: PHENYTOIN SODIUM EXTENDED 100 MG CAP PO SCH (20:54)
[2020-02-05] MEDS: HYDROcodone/APAP 10-325MG 1 EACH TAB PO PRN ×5 (01:16→22:01)
[2020-02-05] MEDS ORDERED: VANCOMYCIN TROUGH DUE 1 EACH MISC MISCELLANE ONE (06:00)
[2020-02-05 06:56] LABS: African American GFR (CKD) >90 (>60 ml/min/1.73 sqM); Non-African American GFR(CKD) >90 (>60 ml/min/1.73 sqM)
[2020-02-05] MEDS: traMADol 50 MG TAB PO SCH ×4 (07:24→21:04)
[2020-02-05] MEDS: POLYETHYLENE GLYCOL 3350 17 GM POWD.PACK PO SCH (07:24)
[2020-02-05] MEDS: VANCOMYCIN 2,250 MG in SODIUM CHLORIDE 0.9% 500 ML 500 ML IVPB SCH (07:24)
[2020-02-05] MEDS: LACTATED RINGERS 1,000 ML IV SCH (07:25)
--- NOTE | 2020-02-05 13:13 | P.PN ---
Subjective No overnight events patient is coming of constipation. 02/05/2020 Patient did move his bowel, no constipation Constitutional: Denied any fatigue denied any fever. Cardio vascular: denied any chest pain, palpitations Gastrointestinal denied any nausea vomiting Pulmonary: Denied any shortness of breath cough Neurologic denied any new focal deficits All inpatient medications were reviewed and appropriate changes in these medications as dictated in the interval history and assessment and plan. Objective - Vital Signs Vital signs: Vital Signs Temp 97.9 F 02/05/20 07:00 Pulse 62 02/05/20 07:00 Resp 18 02/05/20 07:50 BP 134/76 02/05/20 07:00 Pulse Ox 93 L 02/05/20 07:00 Intake & Output 02/04/20 02/05/20 02/05/20 18:59 06:59 18:59 Intake Total 888 60 Balance 888 60 Intake: Intake, IV Titration 60 Amount Lactated Ringers 1,000 ml 60 @ 20 mls/hr IV .Q24H [facility] Rx#:[id number] Oral 888 Other: Voiding Method Toilet Toilet # Voids 1 1 - Exam PHYSICAL EXAMINATION: GENERAL: The patient is alert and oriented x3, not in any acute distress. Well developed, well nourished. HEENT: Pupils are round and equally reacting to light. EOMI. No scleral icterus. No conjunctival pallor. Normocephalic, atraumatic. No pharyngeal erythema. No thyromegaly. CARDIOVASCULAR: S1 and S2 present. No murmurs, rubs, or gallops. PULMONARY: Chest is clear to auscultation, no wheezing or crackles. ABDOMEN: Soft, nontender, nondistended, normoactive bowel sounds. No palpable organomegaly. MUSCULOSKELETAL: Left shoulder is postsurgically packed EXTREMITIES: No cyanosis, clubbing, or pedal edema. NEUROLOGICAL: Gross neurological examination did not reveal any focal deficits. SKIN: No rashes. - Labs CBC & Chem 7: 02/04/20 07:20 02/05/20 05:35 Labs: Microbiology - Last 24 Hours (Table) 02/03/20 11:50 Anaerobic Culture - Preliminary Shoulder - Left 02/03/20 11:50 Anaerobic Culture - Preliminary Shoulder - Left 02/03/20 11:50 Gram Stain - Final Shoulder - Left Wound Culture - Final 02/03/20 11:50 Gram Stain - Final Shoulder - Left Wound Culture - Final 02/03/20 15:14 Blood Culture - Preliminary Blood No Growth after 24 hours Assessment and Plan Plan: -Leukocytosis no evidence of infection will further intervention at this time -Hypertension atenolol will be resumed will hold off on diuretic therapy as vanessa reynaga is receiving IV fluids at this time -Sleep apnea uses CPAP machine at home which will be continued -Constipation secondary to opiates, patient will be started on senna and MiraLAX. -Anxiety disorder -Left shoulder incision and drainage: Blood cultures cultures are pending and patient is on iv vancomycin which is appropriate. Wound cultures have so for negative
--- NOTE | 2020-02-05 14:53 | P.PN ---
Subjective Progress Note Date: 02/05/20 Principal diagnosis: Status post incision and drainage with irrigation and debridement left shoulder/left shoulder arthroscopic debridement and lavage Patient was evaluated today at bedside. He's having some generalized pain around the shoulder. Denies any fevers or chills at this time. Utilizing the arm sling. Objective - Vital Signs Vital signs: Vital Signs Temp 97.9 F 02/05/20 07:00 Pulse 62 02/05/20 07:00 Resp 18 02/05/20 07:50 BP 134/76 02/05/20 07:00 Pulse Ox 93 L 02/05/20 07:00 Intake & Output 02/04/20 02/05/20 02/05/20 18:59 06:59 18:59 Intake Total 888 60 Balance 888 60 Intake: Intake, IV Titration 60 Amount Lactated Ringers 1,000 ml 60 @ 20 mls/hr IV .Q24H [facility] Rx#:[id number] Oral 888 Other: Voiding Method Toilet Toilet # Voids 1 1 - Exam Left upper extremity: Portal sites are all closed with one single nylon, there is no active drainage. Erythema has improved. Tenderness with palpation is also improved. Sensation to light touch throughout the upper extremities intact. Radial pulses 2+ - Labs CBC & Chem 7: 02/04/20 07:20 02/05/20 05:35 Labs: Microbiology - Last 24 Hours (Table) 02/03/20 11:50 Anaerobic Culture - Preliminary Shoulder - Left 02/03/20 11:50 Anaerobic Culture - Preliminary Shoulder - Left 02/03/20 11:50 Gram Stain - Final Shoulder - Left Wound Culture - Final 02/03/20 11:50 Gram Stain - Final Shoulder - Left Wound Culture - Final 02/03/20 15:14 Blood Culture - Preliminary Blood No Growth after 24 hours Assessment and Plan Plan: Assessment: Left shoulder cellulitis/septic arthritis Status post incision and drainage is irrigation and debridement left shoulder/left shoulder arthroscopic debridement and lavage Plan: Continue daily dressing changes Continue use of the arm sling Ice the shoulder often Pain control, will adjust oral medication Continue current IV antibiotics Infectious disease recommendations Internal medicine recommendations Anticipate continuation of inpatient stay until cultures are finalized and antibiotic choices made Time with Patient: Less than 30
[2020-02-05] MEDS: CITALOPRAM HYDROBROMIDE 20 MG TAB PO SCH (21:04)
[2020-02-05] MEDS: PANTOPRAZOLE 40 MG TABLET PO SCH (21:04)
[2020-02-05] MEDS: ATENOLOL 50 MG TAB PO SCH (21:04)
[2020-02-05] MEDS: PHENYTOIN SODIUM EXTENDED 100 MG CAP PO SCH (21:05)
--- NOTE | 2020-02-05 21:52 | PN ---
PROGRESS NOTE DATE OF SERVICE: 02/05/2020. REASON FOR FOLLOWUP: Left shoulder possible septic arthritis. INTERVAL HISTORY: The patient is currently afebrile. The patient's pain to the left shoulder area is currently controlled with pain medication. Denies any chest pain, shortness of breath or cough. No abdominal pain. No diarrhea. PHYSICAL EXAMINATION: Blood pressure is 153/77 with a pulse of 55. Temperature 97.8. He is 98% on room air. General description is a middle-aged elderly male up in the bed in no distress. Respiratory system: Unlabored breathing. Clear to auscultation anteriorly. Heart S1, S2. Regular rate and rhythm. Abdomen soft, no tenderness. LABS: Creatinine 0.6. Vancomycin trough is elevated to 7.8. DIAGNOSTIC IMPRESSION AND PLAN: Patient with left shoulder possible septic arthritis in this patient who did have recent rotator cuff repair. The patient has been on Keflex in the outpatient setting. Cultures currently pending. Keep the patient's vancomycin dose to be adjusted down to keep the trough around 15, likely need IV antibiotic on discharge. Discussed further with gearcase assembler. Continue supportive care. MMODL / IJN: [id number] /
[2020-02-06] MEDS: HYDROcodone/APAP 10-325MG 1 EACH TAB PO PRN ×4 (03:51→22:41)
[2020-02-06] MEDS: LACTATED RINGERS 1,000 ML IV SCH (03:52)
[2020-02-06] MEDS ORDERED: VANCOMYCIN 2,250 MG in SODIUM CHLORIDE 0.9% 500 ML 500 ML IVPB SCH (04:00)
[2020-02-06] MEDS: traMADol 50 MG TAB PO SCH ×4 (07:20→21:26)
[2020-02-06] MEDS: POLYETHYLENE GLYCOL 3350 17 GM POWD.PACK PO SCH ×2 (07:21→07:22)
[2020-02-06 07:44] VITALS: RESP 18
[2020-02-06 10:26] LABS: Basophils % (A) 0 %; Eosinophils # (A) 0.1 k/uL (0-0.7); Eosinophils % (A) 1 %; HCT 37.6 % (39.0-53.0); HGB 12.5 gm/dL (13.0-17.5); Lymphocytes # (A) 1.3 k/uL (1.0-4.8); Lymphocytes % (A) 13 %; MCH 32.6 pg (25.0-35.0); MCHC 33.2 g/dL (31.0-37.0); MCV 98.1 fL (80.0-100.0); Mean Platelet Volume 7.5; Monocytes # (A) 1.1 k/uL (0-1.0); Monocytes % (A) 10 %; Neutrophils # (A) 7.5 k/uL (1.3-7.7); Neutrophils % (A) 73 %; Platelet Count 334 k/uL (150-450); RBC 3.83 m/uL (4.30-5.90); RDW 13.1 % (11.5-15.5); WBC 10.3 k/uL (3.8-10.6)
--- NOTE | 2020-02-06 10:27 | P.PN ---
Subjective No overnight events patient is coming of constipation. 02/05/2020 Patient did move his bowel, no constipation 02/06/2020 Ms. on IV antibiotics no overnight events Constitutional: Denied any fatigue denied any fever. Cardio vascular: denied any chest pain, palpitations Gastrointestinal denied any nausea vomiting Pulmonary: Denied any shortness of breath cough Neurologic denied any new focal deficits All inpatient medications were reviewed and appropriate changes in these medications as dictated in the interval history and assessment and plan. Objective - Vital Signs Vital signs: Vital Signs Temp 98.6 F 02/06/20 07:00 Pulse 60 02/06/20 07:00 Resp 18 02/06/20 07:00 BP 130/76 02/06/20 07:00 Pulse Ox 96 02/06/20 07:00 Intake & Output 02/05/20 02/06/20 02/06/20 18:59 06:59 18:59 Intake Total 500 Balance 500 Intake: Intake, IV Titration 500 Amount Vancomycin 2,250 mg In 500 Sodium Chloride 0.9% 500 ml 500 ml @ 167 mls/hr IVPB Q16H [facility] Rx#: [id number] Other: Voiding Method Toilet Toilet Toilet # Voids 1 1 - Exam PHYSICAL EXAMINATION: GENERAL: The patient is alert and oriented x3, not in any acute distress. Well developed, well nourished. HEENT: Pupils are round and equally reacting to light. EOMI. No scleral icterus. No conjunctival pallor. Normocephalic, atraumatic. No pharyngeal erythema. No thyromegaly. CARDIOVASCULAR: S1 and S2 present. No murmurs, rubs, or gallops. PULMONARY: Chest is clear to auscultation, no wheezing or crackles. ABDOMEN: Soft, nontender, nondistended, normoactive bowel sounds. No palpable organomegaly. MUSCULOSKELETAL: Left shoulder is postsurgically packed EXTREMITIES: No cyanosis, clubbing, or pedal edema. NEUROLOGICAL: Gross neurological examination did not reveal any focal deficits. SKIN: No rashes. - Labs CBC & Chem 7: 02/04/20 07:20 02/05/20 05:35 Labs: Microbiology - Last 24 Hours (Table) 02/03/20 15:14 Blood Culture - Preliminary Blood No Growth after 48 hours 02/03/20 11:50 Anaerobic Culture - Preliminary Shoulder - Left 02/03/20 11:50 Anaerobic Culture - Preliminary Shoulder - Left 02/03/20 11:50 Gram Stain - Final Shoulder - Left Wound Culture - Final 02/03/20 11:50 Gram Stain - Final Shoulder - Left Wound Culture - Final Assessment and Plan Plan: -Leukocytosis no evidence of infection will further intervention at this time -Hypertension atenolol will be resumed will hold off on diuretic therapy as patient is receiving IV fluids at this time -Sleep apnea uses CPAP machine at home which will be continued -Constipation secondary to opiates, patient will be started on senna and MiraLAX. -Anxiety disorder -Left shoulder incision and drainage: Blood cultures cultures are pending and patient is on iv vancomycin which is appropriate. Wound cultures have so for negative
--- NOTE | 2020-02-06 12:54 | P.PN ---
Subjective Progress Note Date: 02/06/20 Principal diagnosis: Status post incision and drainage with irrigation and debridement left shoulder/left shoulder arthroscopic debridement and lavage Patient was evaluated today at bedside. Denies any fevers or chills at this time. Utilizing the arm sling. Objective - Vital Signs Vital signs: Vital Signs Temp 98.6 F 02/06/20 07:00 Pulse 60 02/06/20 07:00 Resp 18 02/06/20 07:00 BP 130/76 02/06/20 07:00 Pulse Ox 96 02/06/20 07:00 Intake & Output 02/05/20 02/06/20 02/06/20 18:59 06:59 18:59 Intake Total 500 Balance 500 Intake: Intake, IV Titration 500 Amount Vancomycin 2,250 mg In 500 Sodium Chloride 0.9% 500 ml 500 ml @ 167 mls/hr IVPB Q16H [facility] Rx#: [id number] Other: Voiding Method Toilet Toilet Toilet # Voids 1 1 - Exam Left upper extremity: Portal sites are all closed with one single nylon, there is no active drainage. Sensation to light touch throughout the upper extremities intact. Radial pulses 2+ - Labs CBC & Chem 7: 02/06/20 10:05 02/05/20 05:35 Labs: Abnormal Lab Results - Last 24 Hours (Table) 02/06/20 Range/Units 10:05 RBC 3.83 L (4.30-5.90) m/uL Hgb 12.5 L (13.0-17.5) gm/dL Hct 37.6 L (39.0-53.0) % Monocytes # 1.1 H (0-1.0) k/uL Microbiology - Last 24 Hours (Table) 02/03/20 15:14 Blood Culture - Preliminary Blood No Growth after 48 hours 02/03/20 11:50 Anaerobic Culture - Preliminary Shoulder - Left 02/03/20 11:50 Anaerobic Culture - Preliminary Shoulder - Left 02/03/20 11:50 Gram Stain - Final Shoulder - Left Wound Culture - Final 02/03/20 11:50 Gram Stain - Final Shoulder - Left Wound Culture - Final Assessment and Plan Plan: Assessment: Left shoulder cellulitis/septic arthritis Status post incision and drainage is irrigation and debridement left shoulder/left shoulder arthroscopic debridement and lavage Plan: Continue daily dressing changes Continue use of the arm sling Ice the shoulder often Pain control, will adjust oral medication Infectious disease recommendations Internal medicine recommendations Anticipate continuation of inpatient stay until cultures are finalized and antibiotic choices made Time with Patient: Less than 30
[2020-02-06] MEDS ORDERED: LIDOCAINE 1% INJ 10MG/ML (20 ML MDV) ONE (14:25)
[2020-02-06] MEDS ORDERED: LIDOCAINE 1% INJ 10MG/ML (20 ML MDV) SQ ONE (14:32)
--- NOTE | 2020-02-06 15:10 | IR ---
EXAMINATION TYPE: IR cvc insert >=5 years DATE OF EXAM: 02/06/2020 COMPARISON: NONE CLINICAL HISTORY: Cellulitis, infection Needs long-term intravenous access for antibiotics. PROCEDURE: Hand hygiene with alcohol-based hand rub. After informed consent, the skin overlying the right basilic vein was localized with ultrasound and n oted to be compressible and patent. An ultrasound image was obtained and submitted on the patient's chart. The overlying skin was prepped and draped and Lidocaine was used for local anesthesia. A ski n celina was made with a scalpel. Access was gained to the vein under ultrasound guidance with a 21 ga uge needle and a 0.018 inch wire was advanced. Access site was dilated with Peel-Away sheath and cat heter tailored to the appropriate length and advanced such that the distal tip is at the cavoatrial j unction. Spot image was obtained verifying placement. Catheter was fixed to the skin and a sterile dressing was placed following hemostasis. Catheter was aspirated and flushed with saline. Patient w as discharged in stable condition without complication.Maximal barrier technique is utilized. Ultras ound image is documented on the chart. Ultrasound used with sterile technique. Fluoro time and fluoroscopic images submitted to document procedure: 0.3 minutes fluoroscopy time, 34 intraoperative images document the procedure IMPRESSION: STATUS POST ULTRASOUND AND FLUOROSCOPIC GUIDED PICC LINE PLACEMENT, READY FOR USE. THIS PROCEDURE WAS PERFORMED BY THE UNDERSIGNED.
--- NOTE | 2020-02-06 18:43 | PN ---
PROGRESS NOTE DATE OF SERVICE: 02/06/2020 REASON FOR FOLLOWUP: Left shoulder septic arthritis. INTERVAL HISTORY: The patient is currently afebrile, has been breathing comfortably. The patient's pain to the left shoulder area has decreased intensity. Denies any chest pain, shortness of breath or cough. No abdominal pain. No diarrhea. PHYSICAL EXAMINATION: Blood pressure 154/72 with a pulse of 50, temperature 98.4. He is 95% on room air. General description is an elderly male up in the bed in no distress. Examination of left shoulder area swelling and redness has improved. Minimal purulent drainage. LUNGS: Unlabored breathing. Clear to auscultation anteriorly. Heart S1, S2 regular rate and rhythm. Abdomen soft, no tenderness. LABS: Hemoglobin is 12.5, white count 10.3, creatinine 0.6. Cultures remain to be negative. DIAGNOSTIC IMPRESSION AND PLAN: Patient with left shoulder septic arthritis with recent surgical repair. Culture has been negative for any resistant pathogen such as MRSA. We will switch him over to Rocephin 2 g daily with a plan for 3-4 weeks of treatment depending upon his clinical response with weekly monitoring of CBC, BMP and sedimentation rate. Midline has been ordered. Continue supportive care. MMODL / IJN: [id number] /
[2020-02-06] MEDS: PHENYTOIN SODIUM EXTENDED 100 MG CAP PO SCH (21:25)
[2020-02-06] MEDS: PANTOPRAZOLE 40 MG TABLET PO SCH (21:26)
[2020-02-06] MEDS: CITALOPRAM HYDROBROMIDE 20 MG TAB PO SCH (21:26)
[2020-02-06] MEDS: ATENOLOL 50 MG TAB PO SCH (21:27)
[2020-02-07 02:09] VITALS: TEMP 98.2
[2020-02-07] MEDS: HYDROcodone/APAP 10-325MG 1 EACH TAB PO PRN ×2 (03:51→10:22)
[2020-02-07] MEDS: POLYETHYLENE GLYCOL 3350 17 GM POWD.PACK PO SCH (07:15)
[2020-02-07] MEDS: LACTATED RINGERS 1,000 ML IV SCH (07:15)
[2020-02-07 07:53] VITALS: BP 143/67; PULSE 57
[2020-02-07] MEDS: traMADol 50 MG TAB PO SCH (07:59)
--- NOTE | 2020-02-07 12:22 | P.PN ---
Subjective Progress Note Date: 02/07/20 Principal diagnosis: Status post incision and drainage with irrigation and debridement left shoulder/left shoulder arthroscopic debridement and lavage Patient was evaluated today at bedside. Denies any fevers or chills at this time. Utilizing the arm sling. Objective - Vital Signs Vital signs: Vital Signs Temp 98.2 F 02/07/20 07:00 Pulse 57 L 02/07/20 07:00 Resp 18 02/07/20 07:00 BP 143/67 02/07/20 07:00 Pulse Ox 96 02/07/20 07:00 Intake & Output 02/06/20 02/07/20 02/07/20 18:59 06:59 18:59 Other: Voiding Method Toilet Toilet # Voids 1 1 - Exam Left upper extremity: Portal sites are all closed with one single nylon, there is no active drainage. Sensation to light touch throughout the upper extremities intact. Radial pulses 2+ - Labs CBC & Chem 7: 02/06/20 10:05 02/05/20 05:35 Labs: Microbiology - Last 24 Hours (Table) 02/03/20 11:50 Anaerobic Culture - Final Shoulder - Left 02/03/20 11:50 Anaerobic Culture - Final Shoulder - Left 02/03/20 15:14 Blood Culture - Preliminary Blood No Growth after 72 hours Assessment and Plan Plan: Assessment: Left shoulder cellulitis/septic arthritis Status post incision and drainage is irrigation and debridement left shoulder/left shoulder arthroscopic debridement and lavage Plan: Continue daily dressing changes Continue use of the arm sling Ice the shoulder often Pain control, [place] 10mg/325mg Patient did receive a PICC line, he'll be receiving Rocephin the next 3 weeks. He'll follow up with infectious disease with regards to this. [facility], he'll continue use of the arm sling with basic pendular exercises. Time with Patient: Less than 30
--- NOTE | 2020-02-07 12:24 | P.DS ---
Providers Date of admission: 02/03/2020 Expected date of discharge: 02/07/20 Attending physician: Bimal Louis Consults: 02/03/20 12:39 Consult Physician Routine Consulting Provider: Manish Flanagan Consult Reason/Comments: septic arthritis left shoulder, abx treatment Do you want consulting provider notified?: Yes 02/03/20 12:42 Consult Physician Routine Consulting Provider: Janeen Shipley Consult Reason/Comments: Medical Management Do you want consulting provider notified?: Yes Primary care physician: Robel Langley Hospital Course: Date of admission: 02/03/2020 Date of discharge: 02/07/2020 Admission diagnosis: Left shoulder cellulitis/septic arthritis Discharge diagnosis: Status post incision and drainage with irrigation and debridement left shoulder, left shoulder arthroscopic lavage Attending physician: Dr. Louis Surgical procedures: Incision and drainage with irrigation and debridement left shoulder, left shoulder arthroscopic lavage Brief history: Patient is a a 64-year-old male who recently underwent a left shoulder arthroscopic surgery with Dr. Louis. Patient was evaluated first first postoperative visit on 02/01/2020, I was concerned for possible cellulitis shoulder. He was started on oral antibiotics and he did see Dr. Louis on 02/02/2020. Lab tests were done which revealed a high likelihood of infection, he was scheduled for surgery on 02/03/2020. Hospital course: Details of patient's surgery can be found in operative report. Patient tolerated the procedure well and was subsequently transported to orthopedic floor. Patient's orthopeidc and medical care was provided daily. Patient had daily laboratory tests performed for evaluation of overall blood counts. Patient was noted to have a relatively uneventful postoperative course. Patient reported satisfactory pain control with oral pain medications by postoperative day 0. Patient showed satisfactory progress with physical therapy. Patient moved steadily through the program and had no difficulty meeting the goals by postoperative day 4. Given patient's otherwise satisfactory course and having met physical therapy goals, plan is to discharge patient home on postoperative day 4. Discharge condition/disposition: Patient will be discharged home in stable condition. Discharge medications: Instructions are given on resumption of patient's normal daily medications per primary care recommendation, in addition patient will be prescribed [place] 10 mg/325 mg, Rocephin. Discharge instructions: 1. Wound care and infection precautions, keep incision dry and covered while showering, no lotions, creams, moisturizers. No soaking, tubs, pools, hottubs. Do not scrub over the incision. 2. Utilize arm sling, pendulum exercises daily 3. Ice and elevate when necessary. Do not exceed 20 minutes per hour with ice pack. 4. Follow up in office at 2 weeks postop with Sam Blackwood PA-C 5. Follow up with your primary care doctor 7-10 days after discharge. 6. Contact [facility] with any questions, . Procedures: Incision and drainage with irrigation and debridement left shoulder, left shoulder arthroscopic lavage Patient Condition at Discharge: Fair Plan - Discharge Summary New Discharge Prescriptions: New Hydrocodone/Acetaminophen [[place] 10-325] 1 each PO Q6H PRN #28 tab PRN Reason: Pain No Action Diazepam [Valium] 2 mg PO HS PRN PRN Reason: Pain Ibuprofen 800 mg PO Q8H PRN PRN Reason: Pain traMADol HCL [Ultram] 50 mg PO HS PRN PRN Reason: Pain Phenytoin Sodium Extended [Dilantin] 400 mg PO HS HYDROcodone/APAP 7.5-325MG [[place] 7.5-325] 2 tab PO BID PRN PRN Reason: Pain Hydrochlorothiazide 25 mg PO HS Furosemide [Lasix] 40 mg PO DAILY PRN PRN Reason: leg edema rOPINIRole HCL [rOPINIRole HCL ER] 2 mg PO HS RABEprazole SODIUM [Aciphex] 20 mg PO HS Cyclobenzaprine [Flexeril] 10 mg PO TID PRN PRN Reason: Pain Atenolol [Tenormin] 100 mg PO HS EPINEPHrine (Auto Inject) [Epipen] 0.3 mg IM ONCE PRN PRN Reason: Anaphylaxis Citalopram Hydrobromide [CeleXA] 40 mg PO HS HYDROcodone/APAP 10-325MG [[place] 10-325] 1 tab PO Q4HR PRN 7 Days #28 tab PRN Reason: Pain Discharge Medication List Atenolol [Tenormin] 100 mg PO HS 01/12/20 [History] Citalopram Hydrobromide [CeleXA] 40 mg PO HS 01/12/20 [History] Cyclobenzaprine [Flexeril] 10 mg PO TID PRN 01/12/20 [History] Diazepam [Valium] 2 mg PO HS PRN 01/12/20 [History] EPINEPHrine (Auto Inject) [Epipen] 0.3 mg IM ONCE PRN 01/12/20 [History] Furosemide [Lasix] 40 mg PO DAILY PRN 01/12/20 [History] HYDROcodone/APAP 7.5-325MG [[place] 7.5-325] 2 tab PO BID PRN 01/12/20 [History] Hydrochlorothiazide 25 mg PO HS 01/12/20 [History] Ibuprofen 800 mg PO Q8H PRN 01/12/20 [History] Phenytoin Sodium Extended [Dilantin] 400 mg PO HS 01/12/20 [History] RABEprazole SODIUM [Aciphex] 20 mg PO HS 01/12/20 [History] rOPINIRole HCL [rOPINIRole HCL ER] 2 mg PO HS 01/12/20 [History] traMADol HCL [Ultram] 50 mg PO HS PRN 01/12/20 [History] HYDROcodone/APAP 10-325MG [[place] 10-325] 1 tab PO Q4HR PRN 7 Days #28 tab 01/17/20 [Rx] Hydrocodone/Acetaminophen [[place] 10-325] 1 each PO Q6H PRN #28 tab 02/06/20 [Rx] Follow up Appointment(s)/Referral(s): Robel Langley DO [Primary Care Provider] - 1 Week [facility], [NON-STAFF] - Miguel Angel Blackwood PAC [PHYSICIAN NEW ACCOUNTS BANKING REPRESENTATIVE] - 02/17/20 3:40 pm (With Dr Louis) [facility], [REFERRING] - Activity/Diet/Wound Care/Special Instructions: Orthopedic discharge instructions: 1. Utilize arm sling 2. Keep incisions clean and dry while showering 3. Plan for follow-up at [facility] 2 weeks 4. [facility] will deliver IV antibiotics and supplies tonight (02/07/2020). [facility] care will set up for first visit tomorrow (02/08/2020) to begin IV antibiotics and teaching. Discharge Disposition: HOME SELF-CARE
== END 2020-02-07 12:54 | disposition home or self-care (01) ==
LOC: OR 05:44 → 4SSUR 11:58 → OR 02-07 12:54
PROVIDERS: ATTEND Orthopaedic Surgery
DX: T81.49XA Infection following a procedure, other surgical site, initial encounter (principal); L03.114 Cellulitis of left upper limb; M65.812 Other synovitis and tenosynovitis, left shoulder; M75.52 Bursitis of left shoulder; M00.9 Pyogenic arthritis, unspecified; F32.9 Major depressive disorder, single episode, unspecified; I10 Essential (primary) hypertension; Z96.653 Presence of artificial knee joint, bilateral; Z98.890 Other specified postprocedural states; Z87.891 Personal history of nicotine dependence; Z80.9 Family history of malignant neoplasm, unspecified; G40.909 Epilepsy, unspecified, not intractable, without status epilepticus; M19.90 Unspecified osteoarthritis, unspecified site; K59.03 Drug induced constipation; G47.30 Sleep apnea, unspecified; Z99.89 Dependence on other enabling machines and devices; G25.81 Restless legs syndrome; E66.9 Obesity, unspecified; Z68.42 Body mass index [BMI] 45.0-49.9, adult; K21.9 Gastro-esophageal reflux disease without esophagitis; F41.9 Anxiety disorder, unspecified; G89.29 Other chronic pain; M54.9 Dorsalgia, unspecified; Z79.891 Long term (current) use of opiate analgesic; Z79.899 Other long term (current) drug therapy; Z79.1 Long term (current) use of non-steroidal anti-inflammatories (NSAID); Z88.0 Allergy status to penicillin; Z91.030 Bee allergy status
CPT/HCPCS: 29820; 29826; 11000; 36573; 80048; 85652; 82565; 85025 ×3; 80202; 86140; 87040; 87070; 87205; 87075; C1751; C1769; J2250; J3370 ×4; J0330; J1100; J2405; J0696 ×2; J2001 ×2; J3010; J2370; J2704; J1170

== ENCOUNTER 2020-03-07 11:49 | Inpatient (IN) | payer MEDICARE ==
--- NOTE | 2020-03-05 14:07 | HP ---
HISTORY AND PHYSICAL CHIEF COMPLAINT: Left shoulder pain and wound drainage. HISTORY OF PRESENT ILLNESS: The patient is a 64-year-old, left-hand dominant, retired male who presents after undergoing irrigation and debridement of an infected left shoulder surgical incision on 02/03/2020 with persistent drainage/erythema/and warmth about his incision. He denies fevers or chills. He has been on IV antibiotics per Infectious Disease. His previous intraoperative cultures did not show growth. PAST MEDICAL HISTORY: Significant for depression, hypertension, and seizures. PAST SURGICAL HISTORY: Significant for appendectomy, bilateral carpal tunnel release, bilateral total knee arthroplasty, lumbar spine surgery, previous left shoulder arthroscopy with rotator cuff repair, and subsequent incision and drainage. CURRENT MEDICATIONS: 1. Atenolol. 2. [place]. 3. Requip. 4. Ultram. ALLERGIES: He has allergies to PENICILLIN. FAMILY HISTORY: Family history is significant for cancer. SOCIAL HISTORY: Significant for previous tobacco use. REVIEW OF SYSTEMS: Sixteen-point review of systems is reviewed. He denies any recent fevers or chills, but does admit to persistent left shoulder drainage. PHYSICAL EXAMINATION: On examination, the patient is approximately 6 feet tall, 300 pounds of endomorphic habitus. HEENT: Examination is nonfocal. Neck is supple. On examination of his left shoulder, he does have some purulent drainage about the lateral portal with surrounding erythema. He has some limitation of motion of the left shoulder secondary to pain. His distal neurovascular examination appears intact in the left upper extremity. LABORATORY DATA: Previous laboratory studies showed a peripheral white blood cell count that was elevated along with continued elevation of his Sed rate and C-reactive protein. X-rays obtained in the office of the left shoulder shows subacromial calcification. IMPRESSION: Status post left shoulder arthroscopic rotator cuff repair with persistent deep infection/cellulitis/abscess. RECOMMENDATIONS: I talked to the patient at length regarding his condition along with treatment options. At this point, clinically he has a persistence of his infection despite IV antibiotic treatment. After a thorough discussion, he opts to proceed with surgery. We will plan to proceed with incision and drainage with likely removal of his previously placed anchors and sutures. Risks and benefits were discussed at length in layman's terms. MMODL / IJN: [id number] /
[2020-03-06 11:36] VITALS: BMI 46.0
[~2020-03-07 11:49] MED LIST changes: +ACETAMINOPHEN TAB 500 MG TAB PO ONE; +CLINDAMYCIN 900 MG in DEXTROSE 5% IN WATER 50 ML IVPB ONE; +DEXAMETHASONE SOD PHOSPHATE 10 MG/ML 1 ML VIAL IV ONE; +LIDOCAINE 1% (10MG/ML) FOR IV START INTRADERMA PRN; +MELOXICAM 7.5 MG TAB PO ONE; +ONDANSETRON 4 MG/2 ML VIAL IVP ONE; -Pre Op ABX Message 1 EACH MISC MISCELLANE ONE; +SCOPOLAMINE 1.5MG/72HR PATCH TRANSDERM ONE; +TRANEXAMIC ACID 1,000 MG in SODIUM CHLORIDE 0.9% 100 ML IVPB ONE
[2020-03-07] MEDS: LACTATED RINGERS 1,000 ML IV SCH ×2 (12:15→20:37)
[2020-03-07] MEDS ORDERED: MIDAZOLAM 2 MG/2 ML VIAL IVP ONE (14:46)
[2020-03-07] MEDS ORDERED: LIDOCAINE 1% INJ 10MG/ML (20 ML MDV) ONE (15:10)
[2020-03-07] MEDS ORDERED: PROPOFOL 10 MG/ML 20 ML VIAL IV ONE (15:10)
[2020-03-07] MEDS ORDERED: SUCCINYLCHOLINE CHLORIDE VIAL 200 MG/10 ML VIAL IV ONE (15:10)
[2020-03-07] MEDS ORDERED: fentaNYL (PF) 50 MCG/ML 2 ML AMP ONE (15:10)
[2020-03-07] MEDS ORDERED: MIDAZOLAM 2 MG/2 ML VIAL ONE (15:10)
[2020-03-07] MEDS ORDERED: PHENYLEPHRINE-0.9% NACL SYG 1 MG/10 ML SYRINGE ONE (15:10)
[2020-03-07] MEDS ORDERED: ROPIVACAINE 5 MG/ML 30 ML VIAL ONE (15:10)
[2020-03-07] MEDS ORDERED: ONDANSETRON 4 MG/2 ML VIAL IVP PRN (16:28)
[2020-03-07] MEDS ORDERED: HYDROcodone/APAP 10-325MG 1 EACH TAB PO PRN (16:33)
--- NOTE | 2020-03-07 16:43 | P.OP ---
Date of Procedure: 03/07/20 Preoperative Diagnosis: Left shoulder cellulitis/abscess/ deep infection Postoperative Diagnosis: Same Procedure(s) Performed: Left shoulder arthroscopic irrigation and debridement/hardware removal4 anchors Anesthesia: FIDE regional Surgeon: Bimal Louis Manufacturing Advisor #1: Miguel Angel Blackwood Estimated Blood Loss (ml): 20 Pathology: other (Deep cultures) Condition: stable Disposition: PACU Indications for Procedure: The patient is a 64-year-old male who previously underwent a left shoulder arthroscopic rotator cuff repair and subsequent irrigation and debridement presented with persistent wound drainage from his lateral portal along with elevated CRP/ESR despite prolonged IV antibiotics. A discussion of the risks and benefits of repeat irrigation and debridement with hardware removal was made with patient. He opted to proceed. Risks inherent to this procedure were discussed to include persistence of infection and need for subsequent procedures. Informed consent was obtained. Operative Findings: As below Description of Procedure: The patient was brought to the operating room, and after induction of general anesthesia was placed in a beachchair position. The bony prominences were appro priately padded. The bony outlines the acromion, distal clavicle, and coracoid process were outlined with a skin marker. The glenohumeral joint was inflated 50 mL of saline utilizing a spinal needle from posterior approach. The previous posterior portal was made 1 m medial and inferior to the posterior lateral border of the acromion. A blunt trocar was used to easily into the joint. The subscapularis tendon appear to be intact. No significant cartilage damage involving the glenoid or humerus was noted. The anterior labrum was intact. The rotator cuff appeared intact from the inferior aspect. The arthroscope was placed in the subacromial space. The previous lateral portal was opened and deep cultures were obtained. A secondary lateral portal was made through a 5 mm skin incision 2 cm inferior to the anterolateral aspect of the acromion. The previously placed anchors were identified and removed as well as the sutures. The subacromial space/glenoid humeral joint was then copiously irrigated with 12 L of saline. The infected-appearing lateral portal was extended 3 cm and the wound edges were sharply debrided with a scalpel down to the muscle fascia. Irisept was used for irrigation. The wound edges were loosely reapproximated with simple 3-0 nylon suture. A sterile dressing was applied in addition to a sling. The patient was then awoken from general anesthesia and transferred to recovery room in good condition. Blood loss was estimated 20 mL. No complications were incurred. Sponge and needle counts were correct at the end of the case.
[2020-03-07] MEDS: HYDROmorphone 0.5 MG/0.5 ML SYRINGE IVP PRN ×2 (16:48→16:53)
--- NOTE | 2020-03-07 17:18 | P.ANPRN ---
Procedure Note - Anesthesia - Nerve Block Performed Left Interscalene Date of Procedure: 03/07/20 Procedure Start Time: 14:44 Procedure Stop Time: 14:59 Location of Patient: PreOp Indication: Acute Post-Operative Pain, Requested by Surgeon (Dr Louis) Sedation Type: Sedate with meaningful contact maintained Preparation: Sterile Prep Position: Supine Catheter: None Needle Types: Pajunk Needle Gauge: Other (see comment) (22) Ultrasound used to visualize needle placement: Yes Ultrasound used to observe medication spread: Yes Injectate: 0.5% Ropivacaine (see comment for volume) (20cc) Blood Aspirated: No Pain Paresthesia on Injection Noted: No Resistance on Injection: Normal Image Stored and Saved: Yes Events: Uneventful and Well Tolerated
[2020-03-07] MEDS: traMADol 50 MG TAB PO SCH ×2 (17:53→21:52)
[2020-03-07] MEDS ORDERED: CYCLOBENZAPRINE 10 MG TAB PO PRN (18:36)
[2020-03-07] MEDS ORDERED: FUROSEMIDE 40 MG TAB PO PRN (18:36)
[2020-03-07] MEDS ORDERED: NON FORMULARY DRUG (Epinephrine (Auto Inject) 0.3 MG) IM PRN (18:36)
[2020-03-07] MEDS: HYDROmorphone 1 MG/ML 1 ML SYRINGE IVP PRN (20:23)
[2020-03-07] MEDS: CITALOPRAM HYDROBROMIDE 20 MG TAB PO SCH (20:26)
[2020-03-07] MEDS: LISINOPRIL 20 MG TAB PO SCH (20:26)
[2020-03-07] MEDS: ATENOLOL 50 MG TAB PO SCH (20:26)
[2020-03-07] MEDS: amLODIPine 10 MG TAB PO SCH (20:27)
[2020-03-07] MEDS: ARIPiprazole 5 MG TAB PO SCH (20:27)
[2020-03-07] MEDS: PHENYTOIN SODIUM EXTENDED 100 MG CAP PO SCH (20:27)
[2020-03-07] MEDS: CLINDAMYCIN 900 MG in DEXTROSE 5% IN WATER 50 ML IVPB SCH ×2 (23:37)
[2020-03-08] MEDS: HYDROmorphone 1 MG/ML 1 ML SYRINGE IVP PRN ×6 (02:10→20:54)
[2020-03-08] MEDS: CLINDAMYCIN 900 MG in DEXTROSE 5% IN WATER 50 ML IVPB SCH ×2 (09:12)
[2020-03-08] MEDS: traMADol 50 MG TAB PO SCH ×4 (09:13→20:20)
[2020-03-08] MEDS ORDERED: traMADol 50 MG TAB PO PRN (10:20)
--- NOTE | 2020-03-08 11:29 | P.CONS ---
History of Present Illness - Reason for Consult Management of hypertension, - History of Present Illness Patient is a pleasant 59-year-old gentleman came in for irrigation of the left shoulder along with the hardware removal. Patient successfully underwent the procedure. Patient was having continued pain and CRP remained elevated because of which are patient came in for irrigation of the shoulder along with removal of the hardware. Patient was receiving Rocephin at home. Infectious disease was consulted for recommendations regarding the IV antibiotics. The patient denied any fever chills patient denied any dysuria, nausea vomiting. Review of Systems REVIEW OF SYSTEMS: CONSTITUTIONAL: No fever, no malaise, no fatigue. HEENT: No recent visual problems or hearing problems. Denied any sore throat. CARDIOVASCULAR: No chest pain, orthopnea, PND, no palpitations, no syncope. PULMONARY: No shortness of breath, no cough, no hemoptysis. GASTROINTESTINAL: No diarrhea, no nausea, no vomiting, no abdominal pain. NEUROLOGICAL: No headaches, no weakness, no numbness. HEMATOLOGICAL: Denies any bleeding or petechiae. GENITOURINARY: Denies any burning micturition, frequency, or urgency. MUSCULOSKELETAL/RHEUMATOLOGICAL: As mentioned in HPI ENDOCRINE: Denies any polyuria or polydipsia. The rest of the 14-point review of systems is negative. Past Medical History Past Medical History: Hypertension Additional Past Medical History / Comment(s): steroid Dec 2019,left shoulder pain,chronic back pain History of Any Multi-Drug Resistant Organisms: None Reported Past Surgical History: Adenoidectomy, Appendectomy, Back Surgery, Joint Replacement, Orthopedic Surgery, Tonsillectomy Additional Past Surgical History / Comment(s): hardware lumbar area,rt knee procedures x7,lt knee proceduresx3,left knee replaced x2,sinus procedures x2, mary carpel tunnel,tendon repair mary hands,mary feet procedures Past Anesthesia/Blood Transfusion Reactions: No Reported Reaction Additional Past Anesthesia/Blood Transfusion Reaction / Comm: no hx blood transfusion Past Psychological History: Anxiety Smoking Status: Former smoker Past Alcohol Use History: Occasional Additional Past Alcohol Use History / Comment(s): quit smoking 1993,smoked approx 20 yrs > 1ppd Past Drug Use History: None Reported - Past Family History Mother Family Medical History: Cancer Father Family Medical History: Cancer Medications and Allergies Home Medications Medication Instructions Recorded Confirmed Type Atenolol [Tenormin] 100 mg PO HS 01/12/20 03/06/20 History Citalopram Hydrobromide [CeleXA] 40 mg PO HS 01/12/20 03/06/20 History Cyclobenzaprine [Flexeril] 10 mg PO TID PRN 01/12/20 03/06/20 History EPINEPHrine (Auto Inject) [Epipen] 0.3 mg IM ONCE PRN 01/12/20 03/06/20 History Furosemide [Lasix] 40 mg PO DAILY PRN 01/12/20 03/06/20 History HYDROcodone/APAP 7.5-325MG [[place] 1 tab PO Q6HR PRN 01/12/20 03/06/20 History 7.5-325] Phenytoin Sodium Extended 400 mg PO HS 01/12/20 03/06/20 History [Dilantin] RABEprazole SODIUM [Aciphex] 20 mg PO HS 01/12/20 03/06/20 History traMADol HCL [Ultram] 50 mg PO Q8HR PRN 01/12/20 03/06/20 History Hydrocodone/Acetaminophen [[place] 1 each PO Q6H PRN #28 tab 02/06/20 03/06/20 Rx 10-325] ARIPiprazole [Abilify] 5 mg PO HS 03/06/20 03/06/20 History LORazepam [Ativan] 2 mg PO HS 03/06/20 03/06/20 History amLODIPine BESYLATE/BENAZEPRIL 1 cap PO HS 03/06/20 03/06/20 History [Lotrel 10-20 MG] cefTRIAXone [Rocephin] 2 gm IVPB Q24H 03/06/20 03/06/20 History Hydrochlorothiazide [Hydrodiuril] 25 mg PO DAILY #10 tab 03/08/20 Rx rOPINIRole HCL [Requip] 2 mg PO BID 03/08/20 03/08/20 History Allergies Allergy/AdvReac Type Severity Reaction Status Date / Time bee venom protein (honey bee) Allergy Anaphylaxis Verified 03/06/20 10:53 Penicillins Allergy Anaphylaxis Verified 03/06/20 10:53 Physical Exam Vitals: Vital Signs Temp Pulse Pulse Resp BP Pulse Ox 03/08/20 06:05 97.6 F 65 20 133/73 92 L 03/07/20 21:00 98.6 F 72 16 156/77 90 L 03/07/20 20:13 98.6 F 75 18 124/78 94 L 03/07/20 19:08 78 18 156/83 94 L 03/07/20 18:05 98.2 F 76 18 167/85 98 03/07/20 18:00 77 14 03/07/20 17:45 98 F 80 20 166/74 93 L 03/07/20 16:57 77 14 150/75 92 L 03/07/20 16:45 77 16 157/83 99 03/07/20 16:36 97.9 F 82 18 145/77 92 L 03/07/20 12:09 98.4 F 62 16 154/78 98 Intake and Output 03/07/20 03/08/20 03/08/20 22:59 06:59 14:59 Intake Total 570 160 Output Total 20 Balance 550 160 Intake: IV 500 Intake, IV Titration 70 160 Amount Lactated Ringers 1,000 ml 70 160 @ 20 mls/hr IV .Q24H [facility] Rx#:[id number] Output: Estimated Blood Loss 20 Other: Voiding Method Toilet Toilet # Voids 1 1 Weight 157.8 kg PHYSICAL EXAMINATION: GENERAL: The patient is alert and oriented x3, not in any acute distress. Well developed, well nourished. HEENT: Pupils are round and equally reacting to light. EOMI. No scleral icterus. No conjunctival pallor. Normocephalic, atraumatic. No pharyngeal erythema. No thyromegaly. CARDIOVASCULAR: S1 and S2 present. No murmurs, rubs, or gallops. PULMONARY: Chest is clear to auscultation, no wheezing or crackles. ABDOMEN: Soft, nontender, nondistended, normoactive bowel sounds. No palpable organomegaly. MUSCULOSKELETAL: Deferred to orthopedic surgery EXTREMITIES: No cyanosis, clubbing, or pedal edema. NEUROLOGICAL: Gross neurological examination did not reveal any focal deficits. SKIN: No rashes. Results Labs: Microbiology - Last 24 Hours (Table) 03/07/20 16:23 Gram Stain - Preliminary Shoulder - Left Wound Culture - Preliminary 03/07/20 16:23 Anaerobic Culture - Preliminary Shoulder - Left Assessment and Plan Plan: -Status post left shoulder irrigation and removal of hardware: Pain management as per primary service and IV antibiotics as per infectious disease. -Hypertension and patient will be resumed on his home medications patient is receiving hydrochlorothiazide which will be resumed patient takes as needed Lasix or pedal edema not on scheduled Lasix because of which am continuing hepatitis with, rest of the and have his medications including atenolol was resumed and medication reconciliation for admission as well as discharge was done. -Sleep apnea -Anxiety disorder
--- NOTE | 2020-03-08 12:53 | P.PN ---
Subjective Progress Note Date: 03/08/20 Principal diagnosis: Status post left shoulder arthroscopic irrigation and debridement/hardware removal Patient evaluated today at bedside, he is resting comfortably. He notes some generalized pain in the shoulder. He denies any fevers or chills at this time. Objective - Vital Signs Vital signs: Vital Signs Temp 98.8 F 03/08/20 11:30 Pulse 64 03/08/20 11:30 Resp 20 03/08/20 11:30 BP 126/60 03/08/20 11:30 Pulse Ox 90 L 03/08/20 11:30 Intake & Output 03/07/20 03/08/20 03/08/20 18:59 06:59 18:59 Intake Total 700 230 Output Total 20 Balance 680 230 Weight 157.8 kg Intake: IV 700 Intake, IV Titration 230 Amount Lactated Ringers 1,000 ml 230 @ 20 mls/hr IV .Q24H [facility] Rx#:[id number] Output: Estimated Blood Loss 20 Other: Voiding Method Toilet Toilet # Voids 1 - Exam Left upper extremity: Postoperative bandage was removed, sutures are all in good position and condition. There is some slight bloody drainage noted from the lateral portal. No obvious purulent drainage appreciated. Sensory exam light touch throughout the extremities intact. Radial pulses 2+. - Labs Labs: Microbiology - Last 24 Hours (Table) 03/07/20 16:23 Gram Stain - Preliminary Shoulder - Left Wound Culture - Preliminary 03/07/20 16:23 Anaerobic Culture - Preliminary Shoulder - Left Assessment and Plan Plan: Assessment: Status post left shoulder arthroscopic irrigation and debridement/hardware removal Left shoulder cellulitis/abscess/deep infection Plan: Daily dressing changes to include 4 x 4's and ABDs placement Continue use of arm sling Pain control, continue current medication Discussed with infectious disease, we are waiting culture results to decide on what IV antibiotic to use it for discharge We'll change order status to inpatient We'll continue to follow during his stay Time with Patient: Less than 30
[2020-03-08 14:07] LABS: Basophils # (A) 0.1 k/uL (0-0.2); Basophils % (A) 1 %; Eosinophils # (A) 0.2 k/uL (0-0.7); Eosinophils % (A) 2 %; HCT 36.4 % (39.0-53.0); Lymphocytes # (A) 3.6 k/uL (1.0-4.8); Lymphocytes % (A) 25 %; MCH 32.2 pg (25.0-35.0); MCHC 32.9 g/dL (31.0-37.0); MCV 97.8 fL (80.0-100.0); Mean Platelet Volume 7.2; Monocytes % (A) 7 %; Neutrophils # (A) 8.9 k/uL (1.3-7.7); Neutrophils % (A) 63 %; Platelet Count 277 k/uL (150-450); RBC 3.72 m/uL (4.30-5.90); RDW 13.5 % (11.5-15.5); WBC 14.1 k/uL (3.8-10.6)
[2020-03-08 14:24] LABS: African American GFR (CKD) >90 (>60 ml/min/1.73 sqM); Anion Gap 9 mmol/L; Blood Urea Nitrogen 28 mg/dL (9-20); C Reactive Protein 14.9 mg/L (<10.0); Calcium 8.7 mg/dL (8.4-10.2); Carbon Dioxide 33 mmol/L (22-30); Chloride 95 mmol/L (98-107); Glucose 129 mg/dL (74-99); Non-African American GFR(CKD) >90 (>60 ml/min/1.73 sqM); Potassium 4.4 mmol/L (3.5-5.1); Sodium 137 mmol/L (137-145)
[2020-03-08 15:02] LABS: Erythrocyte Sedimentation Rate 32 mm/hr (0-15)
[2020-03-08] MEDS: PHENYTOIN SODIUM EXTENDED 100 MG CAP PO SCH (20:52)
[2020-03-08] MEDS: ATENOLOL 50 MG TAB PO SCH (20:52)
[2020-03-08] MEDS: amLODIPine 10 MG TAB PO SCH (20:52)
[2020-03-08] MEDS: LISINOPRIL 20 MG TAB PO SCH (20:52)
[2020-03-08] MEDS: ARIPiprazole 5 MG TAB PO SCH (20:53)
[2020-03-08] MEDS: CITALOPRAM HYDROBROMIDE 20 MG TAB PO SCH (20:53)
[2020-03-08] MEDS ORDERED: HYDROCHLOROTHIAZIDE 25 MG TAB PO SCH (21:00)
[2020-03-08] MEDS ORDERED: PANTOPRAZOLE 40 MG TABLET PO SCH (21:00)
--- NOTE | 2020-03-08 23:18 | P.CONS ---
History of Present Illness - Reason for Consult Consult date: 03/08/20 left shoulder infection Requesting physician: Miguel Angel Blackwood - Chief Complaint left shoulder non healing wound and infection x weeks - History of Present Illness Patient is a 64-year male with a past medical he significant for arthroscopic rotator cuff repair subsequently complicated by development of infection for the patient did have a I&D and deep cultures those cultures were negative for any resistant pathogen subsequently. Get a PICC line is currently getting Rocephin 2 g daily patient received almost 4 weeks of IV antibiotic therapy and on a follow-up visit with the orthopedics patient was noticed to have persistent drainage from his shoulder incision subsequently patient has been admitted to hospital for repeat I&D and removal of hardware which was completed yesterday subsequently infectious was consulted for further management of antibiotic therapy. At the time of my evaluation this morning the patient is afebrile patient still having pain to the left shoulder area more of a dull aching to sharp about 6-7 out of 10 and no radiation currently controlled with pain medication. Denies having any chest pain or shortness with cough no nausea vomiting no abdominal pain no diarrhea Review of Systems Positive point has been mentioned in HPI rest of the systems are negative Past Medical History Past Medical History: Hypertension Additional Past Medical History / Comment(s): steroid Dec 2019,left shoulder pain,chronic back pain History of Any Multi-Drug Resistant Organisms: None Reported Past Surgical History: Adenoidectomy, Appendectomy, Back Surgery, Joint Replacement, Orthopedic Surgery, Tonsillectomy Additional Past Surgical History / Comment(s): hardware lumbar area,rt knee procedures x7,lt knee proceduresx3,left knee replaced x2,sinus procedures x2, mary carpel tunnel,tendon repair mary hands,mary feet procedures Past Anesthesia/Blood Transfusion Reactions: No Reported Reaction Additional Past Anesthesia/Blood Transfusion Reaction / Comm: no hx blood transfusion Past Psychological History: Anxiety Smoking Status: Former smoker Past Alcohol Use History: Occasional Additional Past Alcohol Use History / Comment(s): quit smoking 1993,smoked approx 20 yrs > 1ppd Past Drug Use History: None Reported - Past Family History Mother Family Medical History: Cancer Father Family Medical History: Cancer Medications and Allergies Home Medications Medication Instructions Recorded Confirmed Type Atenolol [Tenormin] 100 mg PO HS 01/12/20 03/06/20 History Citalopram Hydrobromide [CeleXA] 40 mg PO HS 01/12/20 03/06/20 History Cyclobenzaprine [Flexeril] 10 mg PO TID PRN 01/12/20 03/06/20 History EPINEPHrine (Auto Inject) [Epipen] 0.3 mg IM ONCE PRN 01/12/20 03/06/20 History Furosemide [Lasix] 40 mg PO DAILY PRN 01/12/20 03/06/20 History HYDROcodone/APAP 7.5-325MG [[place] 1 tab PO Q6HR PRN 01/12/20 03/06/20 History 7.5-325] Phenytoin Sodium Extended 400 mg PO HS 01/12/20 03/06/20 History [Dilantin] RABEprazole SODIUM [Aciphex] 20 mg PO HS 01/12/20 03/06/20 History traMADol HCL [Ultram] 50 mg PO Q8HR PRN 01/12/20 03/06/20 History Hydrocodone/Acetaminophen [[place] 1 each PO Q6H PRN #28 tab 02/06/20 03/06/20 Rx 10-325] ARIPiprazole [Abilify] 5 mg PO HS 03/06/20 03/06/20 History LORazepam [Ativan] 2 mg PO HS 03/06/20 03/06/20 History amLODIPine BESYLATE/BENAZEPRIL 1 cap PO HS 03/06/20 03/06/20 History [Lotrel 10-20 MG] cefTRIAXone [Rocephin] 2 gm IVPB Q24H 03/06/20 03/06/20 History Hydrochlorothiazide [Hydrodiuril] 25 mg PO DAILY #10 tab 03/08/20 Rx rOPINIRole HCL [Requip] 2 mg PO BID 03/08/20 03/08/20 History Allergies Allergy/AdvReac Type Severity Reaction Status Date / Time bee venom protein (honey bee) Allergy Anaphylaxis Verified 03/06/20 10:53 Penicillins Allergy Anaphylaxis Verified 03/06/20 10:53 Physical Exam Vitals: Vital Signs Temp Pulse Resp BP Pulse Ox 03/08/20 11:30 98.8 F 64 20 126/60 90 L 03/08/20 06:05 97.6 F 65 20 133/73 92 L 03/07/20 21:00 98.6 F 72 16 156/77 90 L 03/07/20 20:13 98.6 F 75 18 124/78 94 L 03/07/20 19:08 78 18 156/83 94 L Intake and Output 03/08/20 03/08/20 03/08/20 06:59 14:59 22:59 Intake Total 160 Balance 160 Intake: Intake, IV Titration 160 Amount Lactated Ringers 1,000 ml 160 @ 20 mls/hr IV .Q24H [facility] Rx#:[id number] Other: Voiding Method Toilet Toilet # Voids 1 2 GENERAL DESCRIPTION: Elderly male lying in bed, no distress. No tachypnea or accessory muscle of respiration use. HEENT: Shows Pallor , no scleral icterus. Oral mucous membrane is dry. NECK: Trachea central, no thyromegaly. LUNGS: Unlabored breathing. Clear to auscultation anteriorly. No wheeze or crackle. HEART: S1, S2, regular rate and rhythm. ABDOMEN: Soft, no tenderness , guarding or rigidity EXTREMITIES: No edema of feet. Left shoulder 3 incision which has been staged minimal swelling slight redness no drainage SKIN: No rash, no masses palpable. NEUROLOGICAL: The patient is awake, alert, oriented x3, mood and affect normal. Results CBC & Chem 7: 03/08/20 13:40 03/08/20 13:40 Labs: Abnormal Lab Results - Last 24 Hours (Table) 03/08/20 03/08/20 Range/Units 13:40 13:40 WBC 14.1 H (3.8-10.6) k/uL RBC 3.72 L (4.30-5.90) m/uL Hgb 12.0 L (13.0-17.5) gm/dL Hct 36.4 L (39.0-53.0) % Neutrophils # 8.9 H (1.3-7.7) k/uL ESR 32 H (0-15) mm/hr Chloride 95 L (98-107) mmol/L Carbon Dioxide 33 H (22-30) mmol/L BUN 28 H (9-20) mg/dL Glucose 129 H (74-99) mg/dL C-Reactive Protein 14.9 H (<10.0) mg/L Microbiology - Last 24 Hours (Table) 03/07/20 16:23 Gram Stain - Preliminary Shoulder - Left Wound Culture - Preliminary 03/07/20 16:23 Anaerobic Culture - Preliminary Shoulder - Left Assessment and Plan Assessment: patient with her left shoulder infection failing outpatient IV antibiotic therapy in this patient with status post removal of the hardware previous culture were negative for resistant pathogen culture this admission are currently pending (1) Septic arthritis of shoulder, left Current Visit: Yes Status: Acute Code(s): M00.9 - PYOGENIC ARTHRITIS, UNSPECIFIED SNOMED Code(s): 58999215 Plan: 1-we will start the patient on Rocephin 2 gram daily 2-we will wait for the cultures that were done yesterday till tomorrow and if they are negative for any resistant pathogen patient may be discharged home on IV Rocephin 2 g daily for another 3 to 4-week depending on clinical response 3-we will repeat his baseline CRP and a sed rate We will follow on clinical condition and cultures to further adjust medication if needed Thank you for this consultation we will follow the patient along with you Time with Patient: Greater than 30
[2020-03-09] MEDS: HYDROmorphone 1 MG/ML 1 ML SYRINGE IVP PRN ×3 (00:37→09:07)
[2020-03-09 06:08] VITALS: PULSE 58
[2020-03-09] MEDS: traMADol 50 MG TAB PO SCH ×2 (08:39→12:55)
--- NOTE | 2020-03-09 12:44 | P.PN ---
Subjective Progress Note Date: 03/09/20 Principal diagnosis: Status post left shoulder arthroscopic irrigation and debridement/hardware removal Patient evaluated today at bedside, he is resting comfortably. He notes some generalized pain in the shoulder. He denies any fevers or chills at this time. Objective - Vital Signs Vital signs: Vital Signs Temp 97.8 F 03/09/20 05:00 Pulse 58 L 03/09/20 05:00 Resp 18 03/09/20 05:00 BP 125/67 03/09/20 05:00 Pulse Ox 93 L 03/09/20 05:00 Intake & Output 03/08/20 03/09/20 03/09/20 18:59 06:59 18:59 Other: Voiding Method Toilet Toilet Toilet # Voids 2 2 - Exam Left upper extremity: sutures are all in good position and condition. No obvious purulent drainage appreciated. Sensory exam light touch throughout the extremities intact. Radial pulses 2+. - Labs CBC & Chem 7: 03/08/20 13:40 03/08/20 13:40 Labs: Abnormal Lab Results - Last 24 Hours (Table) 03/08/20 03/08/20 Range/Units 13:40 13:40 WBC 14.1 H (3.8-10.6) k/uL RBC 3.72 L (4.30-5.90) m/uL Hgb 12.0 L (13.0-17.5) gm/dL Hct 36.4 L (39.0-53.0) % Neutrophils # 8.9 H (1.3-7.7) k/uL ESR 32 H (0-15) mm/hr Chloride 95 L (98-107) mmol/L Carbon Dioxide 33 H (22-30) mmol/L BUN 28 H (9-20) mg/dL Glucose 129 H (74-99) mg/dL C-Reactive Protein 14.9 H (<10.0) mg/L Microbiology - Last 24 Hours (Table) 03/07/20 16:23 Gram Stain - Preliminary Shoulder - Left Wound Culture - Preliminary Assessment and Plan Plan: Assessment: Status post left shoulder arthroscopic irrigation and debridement/hardware removal Left shoulder cellulitis/abscess/deep infection Plan: Discussed the case with infectious disease doctor, patient will be discharged home today on current IV antibiotic. We will continue to monitor for final results of culture and sensitivity, at that adjust accordingly Continue use of arm sling Pain control, oral Duc[place] 10 mg/325 mg discharge Follow-up in the outpatient setting in 2 weeks Time with Patient: Less than 30
--- NOTE | 2020-03-09 12:54 | P.DS ---
Providers Date of admission: 03/08/20 12:53 Expected date of discharge: 03/09/20 Attending physician: Bimal Louis Consults: 03/07/20 16:28 Consult Physician Routine Consulting Provider: Manish Flanagan Consult Reason/Comments: right shoulder infection, picc line medication Do you want consulting provider notified?: Yes 03/07/20 16:32 Consult Physician Routine Consulting Provider: Janeen Shipley Consult Reason/Comments: Medical Management Do you want consulting provider notified?: Yes Primary care physician: Stated None Hospital Course: Date of admission: 03/07/2020 Date of discharge: 03/09/2020 Admission diagnosis: Left shoulder cellulitis/abscess/deep infection, status post left shoulder arthroscopy Discharge diagnosis: Status post left shoulder arthroscopic debridement/lavage /hardware removal Attending physician: Dr. Louis Surgical procedures: Left shoulder arthroscopic debridement/lavage/hardware removal Brief history: Patient is a 64-year-old male with a history of a previous left shoulder arthroscopic procedure, uses a completely developed and infection, he underwent an initial arthroscopic shoulder lavage/debridement. At that time he was also started on IV antibiotics for the infection. Over the last week or so, he noticed worsening symptoms including drainage and redness involving the shoulder. He was evaluated in the outpatient setting by Dr. Louis, as determined he would need further surgical intervention. He was then scheduled for a left shoulder arthroscopic debridement/lavage/hardware removal on 03/07/2020. Hospital course: Details of patient's surgery can be found in operative report. Patient tolerated the procedure well and was subsequently transported to orthopedic floor. Patient's orthopeidc and medical care was provided daily. Patient had daily laboratory tests performed for evaluation of overall blood counts. Patient had daily physical therapy to include strengthening range of motion as well as education with walker ambulation. Patient was noted to have a relatively uneventful postoperative course. Patient reported satisfactory pain control with oral pain medications by postoperative day 0. Patient showed satisfactory progress with physical therapy. Patient moved steadily through the program and had no difficulty meeting the goals by postoperative day 2. Given patient's otherwise satisfactory course and having met physical therapy goals, plan is to discharge patient 2home on postoperative day 2. We will continue to monitor results recent culture and sensitivity, IV antibiotics will be adjusted accordingly Discharge condition/disposition: Patient will be discharged home in stable condition. Discharge medications: Instructions are given on resumption of patient's normal daily medications per primary care recommendation, in addition patient will be prescribed [place] 10 mg/325 mg, Rocephin 2 g. Discharge instructions: 1. Wound care and infection precautions, keep incision dry and covered while showering, no lotions, creams, moisturizers. No soaking, tubs, pools, hottubs. Do not scrub over the incision. 2. Utilize arm sling 3. Ice and elevate when necessary. Do not exceed 20 minutes per hour with ice pack. 5. Visiting nursing care. 10. Follow up in office at 2 weeks postop with Sam Blackwood PA-C 11. Follow up with your primary care doctor 7-10 days after discharge. 12. Contact [facility] with any questions, . Procedures: Left shoulder arthroscopic debridement/lavage/hardware removal Patient Condition at Discharge: Stable Plan - Discharge Summary Discharge Rx Participant: Yes New Discharge Prescriptions: New Hydrochlorothiazide [Hydrodiuril] 25 mg PO DAILY #10 tab Hydrocodone/Acetaminophen [[place] 10-325] 1 each PO Q6H PRN #28 tab PRN Reason: Pain Discontinued Hydrochlorothiazide 25 mg PO HS No Action traMADol HCL [Ultram] 50 mg PO Q8HR PRN PRN Reason: Pain Phenytoin Sodium Extended [Dilantin] 400 mg PO HS HYDROcodone/APAP 7.5-325MG [[place] 7.5-325] 1 tab PO Q6HR PRN PRN Reason: Pain Furosemide [Lasix] 40 mg PO DAILY PRN PRN Reason: leg edema RABEprazole SODIUM [Aciphex] 20 mg PO HS Cyclobenzaprine [Flexeril] 10 mg PO TID PRN PRN Reason: Pain Atenolol [Tenormin] 100 mg PO HS EPINEPHrine (Auto Inject) [Epipen] 0.3 mg IM ONCE PRN PRN Reason: Anaphylaxis Citalopram Hydrobromide [CeleXA] 40 mg PO HS LORazepam [Ativan] 2 mg PO HS amLODIPine BESYLATE/BENAZEPRIL [Lotrel 10-20 MG] 1 cap PO HS ARIPiprazole [Abilify] 5 mg PO HS cefTRIAXone [Rocephin] 2 gm IVPB Q24H rOPINIRole HCL [Requip] 2 mg PO BID Discharge Medication List Atenolol [Tenormin] 100 mg PO HS 01/12/20 [History] Citalopram Hydrobromide [CeleXA] 40 mg PO HS 01/12/20 [History] Cyclobenzaprine [Flexeril] 10 mg PO TID PRN 01/12/20 [History] EPINEPHrine (Auto Inject) [Epipen] 0.3 mg IM ONCE PRN 01/12/20 [History] Furosemide [Lasix] 40 mg PO DAILY PRN 01/12/20 [History] HYDROcodone/APAP 7.5-325MG [[place] 7.5-325] 1 tab PO Q6HR PRN 01/12/20 [History] Phenytoin Sodium Extended [Dilantin] 400 mg PO HS 01/12/20 [History] RABEprazole SODIUM [Aciphex] 20 mg PO HS 01/12/20 [History] traMADol HCL [Ultram] 50 mg PO Q8HR PRN 01/12/20 [History] ARIPiprazole [Abilify] 5 mg PO HS 03/06/20 [History] LORazepam [Ativan] 2 mg PO HS 03/06/20 [History] amLODIPine BESYLATE/BENAZEPRIL [Lotrel 10-20 MG] 1 cap PO HS 03/06/20 [History] cefTRIAXone [Rocephin] 2 gm IVPB Q24H 03/06/20 [History] Hydrochlorothiazide [Hydrodiuril] 25 mg PO DAILY #10 tab 03/08/20 [Rx] rOPINIRole HCL [Requip] 2 mg PO BID 03/08/20 [History] Hydrocodone/Acetaminophen [[place] 10-325] 1 each PO Q6H PRN #28 tab 03/09/20 [Rx] Follow up Appointment(s)/Referral(s): [facility], [NON-STAFF] - Miguel Angel Blackwood 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
[2020-03-09 13:09] VITALS: BP 153/79; RESP 20; TEMP 98.1
--- NOTE | 2020-03-09 13:42 | P.PN ---
Subjective Progress Note Date: 03/09/20 Principal diagnosis: Patient is a pleasant 59-year-old gentleman came in for irrigation of the left shoulder along with the hardware removal. Patient successfully underwent the pr ocedure. Patient was having continued pain and CRP remained elevated because of which are patient came in for irrigation of the shoulder along with removal of the hardware. Patient was receiving Rocephin at home. Infectious disease was consulted for recommendations regarding the IV antibiotics. The patient denied any fever chills patient denied any dysuria, nausea vomiting. 03/09/2020 Patient is seen and evaluated in follow-up today with no acute overnight issues. Patient is status post irrigation of the left shoulder with removal of hardware. Following with orthopedic surgery. Infectious disease is also following as patient remains on IV antibiotic therapy. Awaiting for cultures to finalized. Currently no reports of chest pain, shortness of breath, or palpitations. Patient is afebrile. No reports of nausea or vomiting and patient is tolerating diet. Patient states he is awaiting to go home today. Patient has been resumed on antihypertensive home medications and is to cont inue. Objective - Vital Signs Vital signs: Vital Signs Temp 98.1 F 03/09/20 13:08 Pulse 58 L 03/09/20 13:08 Resp 20 03/09/20 13:08 BP 153/79 03/09/20 13:08 Pulse Ox 96 03/09/20 13:08 Intake & Output 03/08/20 03/09/20 03/09/20 18:59 06:59 18:59 Other: Voiding Method Toilet Toilet Toilet # Voids 2 2 - Exam GENERAL: The patient is alert and oriented x3, not in any acute distress. Well developed, well nourished. HEENT: Pupils are round and equally reacting to light. EOMI. No scleral icterus. No conjunctival pallor. Normocephalic, atraumatic. No pharyngeal erythema. No thyromegaly. CARDIOVASCULAR: S1 and S2 present. No murmurs, rubs, or gallops. PULMONARY: Chest is clear to auscultation, no wheezing or crackles. ABDOMEN: Soft, nontender, nondistended, normoactive bowel sounds. No palpable organomegaly. MUSCULOSKELETAL: Deferred to orthopedic surgery, left shoulder sling noted EXTREMITIES: No cyanosis, clubbing, or pedal edema. NEUROLOGICAL: Gross neurological examination did not reveal any focal deficits. SKIN: No rashes. - Labs CBC & Chem 7: 03/08/20 13:40 03/08/20 13:40 Labs: Abnormal Lab Results - Last 24 Hours (Table) 03/08/20 03/08/20 Range/Units 13:40 13:40 WBC 14.1 H (3.8-10.6) k/uL RBC 3.72 L (4.30-5.90) m/uL Hgb 12.0 L (13.0-17.5) gm/dL Hct 36.4 L (39.0-53.0) % Neutrophils # 8.9 H (1.3-7.7) k/uL ESR 32 H (0-15) mm/hr Chloride 95 L (98-107) mmol/L Carbon Dioxide 33 H (22-30) mmol/L BUN 28 H (9-20) mg/dL Glucose 129 H (74-99) mg/dL C-Reactive Protein 14.9 H (<10.0) mg/L Microbiology - Last 24 Hours (Table) 03/07/20 16:23 Gram Stain - Preliminary Shoulder - Left Wound Culture - Preliminary Assessment and Plan Assessment: -Status post left shoulder irrigation and removal of hardware: Pain management as per primary service and IV antibiotics as per infectious disease. -Hypertension: Controlled, to continue with home medications -Sleep apnea -Anxiety disorder Plan: Patient is maintained on IV antibiotics in the form of Rocephin and infectious disease is following. Patient awaiting for wound cultures at this time. Following along with orthopedic surgery. Blood pressure medications have been continued. Patient states he is going home today per orthopedic services.
--- NOTE | 2020-03-09 14:34 | CDI ---
Documentation Clarification Form Date: 03/09/2020 02:23:09 PM From: Yaa Riggins RN, CCDS Admit Date: 03/08/2020 12:53:00 PM Patient Name: Jeffery Stallworth Visit Number: [id number] ATTENTION: The Clinical Documentation Specialists (CDI) and [facility] Coding Staff appreciate your assistance in clarifying documentation. Please respond to the clarification below the line at the bottom and electronically sign. The CDI & [facility] Coding staff will review the response and follow-up if needed. Please note: Queries are made part of the Legal Health Record. If you have any questions, please contact the author of this message via ITS. Dr. Bimal Louis Per your progress notes/operative note, a sharp debridement was performed on 03/07/2020 and requires further specificity. History/Risk Factors: Left shoulder cellulitis/abscess/ deep infection H&P: irrigation and debridement of an infected left shoulder surgical incision on 02/03/2020 with persistent drainage/erythema/and warmth about his incision. clinically he has a persistence of his infection despite IV antibiotic treatment." Clinical Indicators: 03/07 Procedure note: "The infected-appearing lateral portal was extended 3 cm and the wound edges were sharply debrided with a scalpel down to the muscle fascia. Irisept was used for irrigation. The wound edges were loosely reapproximated with simple 3-0 nylon suture." Treatment: 03/07 Procedure:"Left shoulder arthroscopic irrigation and debridement/hardware removal4 anchors" Rocephin 2 GM IVPB QD per ID recommendations Five elements required for accurate and compliant documentation of a debridement: 1. Technique used (e.g., excisional, excised, cutting, etc.) 2. Instrument(s) used (e.g., scalpel, curette, etc.) 3. Nature of the tissue removed (e.g., necrotic, devitalized tissues, non- viable tissue, etc.) 4. Appearance and size of the wound (e.g., down to fresh bleeding tissue, 7cm x 10cm, etc.) 5. Depth of the debridement* (e.g., skin, subcutaneous tissue, fascia, muscle, bone, etc.) In order to capture the severity of condition and code the appropriate procedure; could you please document the following: Excisional debridement (the removal of necrotic, devitalized tissue or slough by means of cutting away of tissue) Non-excisional debridement (the removal of necrotic, devitalized tissue or slough by means of flushing, brushing, or washing. (Irrigation) Other; please specify Unable to determine (Last Revision: February 2018) MTDD
--- NOTE | 2020-03-09 16:42 | PN ---
PROGRESS NOTE DATE OF SERVICE: 03/09/2020 REASON FOR FOLLOW UP: Left shoulder septic arthritis. INTERVAL HISTORY: The patient WAS seen on rounds early this afternoon. The patient has been afebrile. Pain to the left shoulder area is currently controlled. No chest pain, shortness of breath or cough. No abdominal pain, no diarrhea. PHYSICAL EXAMINATION: Blood pressure is 153/79 with a pulse of 58, temperature 98.1, he is 96% on room air. General description is an elderly male, up in the bed in no distress. RESPIRATORY SYSTEM: Unlabored breathing, clear to auscultation anteriorly. HEART: S1, S2. Regular rate and rhythm. ABDOMEN: Soft, no tenderness. LABS: Hemoglobin is 12, white count 14.1, creatinine 0.6. Sedimentation rate is 32 with CRP 14.9, cultures currently pending. DIAGNOSTIC IMPRESSION AND PLAN: Patient with left shoulder septic arthritis, status post removal of the hardware. The patient is currently on Rocephin to continue outpatient setting, will be adjusted further on the basis of culture in outpatient setting and monitor clinical course closely. Plan of care was discussed with the nurse practitioner for the orthopedics. MMODL / IJN: [id number] /
--- NOTE | 2020-03-14 08:28 | CDI ---
Documentation Clarification Form 2nd Request Date: 03/09/2020 02:23:00 PM From: Yaa Riggins RN, CCDS Admit Date: 03/08/2020 12:53:00 PM Patient Name: Jeffery Stallworth Visit Number: [id number] Discharge Date: 03/09/2020 03:00:00 PM ATTENTION: The Clinical Documentation Specialists (CDI) and [facility] Coding Staff appreciate your assistance in clarifying documentation. Please respond to the clarification below the line at the bottom and electronically sign. The CDI & [facility] Coding staff will review the response and follow-up if needed. Please note: Queries are made part of the Legal Health Record. If you have any questions, please contact the author of this message via ITS. Dr. Bimal Louis Per your progress notes/operative note, a sharp debridement was performed on 03/07/2020 and requires further specificity. History/Risk Factors: Left shoulder cellulitis/abscess/ deep infection H&P: " irrigation and debridement of an infected left shoulder surgical incision on 02/03/2020 with persistent drainage/erythema/and warmth about his incision. clinically he has a persistence of his infection despite IV antibiotic treatment." Clinical Indicators: 03/07 Procedure note: "The infected-appearing lateral portal was extended 3 cm and the wound edges were sharply debrided with a scalpel down to the muscle fascia.Irisept was used for irrigation.The wound edges were loosely reapproximated with simple 3-0 nylon suture." Treatment: 03/07 Procedure:"Left shoulder arthroscopic irrigation and debridement/hardware removal4 anchors" Rocephin 2 GM IVPB QD per ID recommendations Five elements required for accurate and compliant documentation of a debridement: 1. Technique used (e.g., excisional, excised, cutting, etc.) 2. Instrument(s) used (e.g., scalpel, curette, etc.) 3. Nature of the tissue removed (e.g., necrotic, devitalized tissues, non- viable tissue, etc.) 4. Appearance and size of the wound (e.g., down to fresh bleeding tissue, 7cm x 10cm, etc.) 5. Depth of the debridement* (e.g., skin, subcutaneous tissue, fascia, muscle, bone, etc.) In order to capture the severity of condition and code the appropriate procedure; could you please document the following: Excisional debridement (the removal of necrotic, devitalized tissue or slough by means of cutting away of tissue) Non-excisional debridement (the removal of necrotic, devitalized tissue or slough by means of flushing, brushing, or washing. (Irrigation) Other; please specify Unable to determine (Last Revision: February 2018) excisional debridement was performed. the wound was debrided sharply with a scalpel removing devitalized/necrotic tissue. The wound measured 3 x 1 cm. The wound edges were taken down to bleeding tissue. This involved the skin/subcutaneous tissue down to the fascia. AMBAR
== END 2020-03-09 15:00 | disposition home or self-care (01) | DRG 464 ==
LOC: OR 11:49 → 5NMEDONC 16:25 → OR 03-08 10:41 → 5NMEDONC 03-08 10:41 → OBSVTOIN 03-08 12:53
PROVIDERS: ADMIT Orthopaedic Surgery; ATTEND Orthopaedic Surgery
PROC: 0JBF0ZZ Excision of Left Upper Arm Subcutaneous Tissue and Fascia, Open Approach (ICD-10-PCS; 2020-03-07)
PROC: 0RPK44Z Removal of Internal Fixation Device from Left Shoulder Joint, Percutaneous Endoscopic Approach (ICD-10-PCS; principal; 2020-03-07 13:30)
DX: T84.59XA Infection and inflammatory reaction due to other internal joint prosthesis, initial encounter (principal); L03.114 Cellulitis of left upper limb; M00.9 Pyogenic arthritis, unspecified; F41.9 Anxiety disorder, unspecified; G47.30 Sleep apnea, unspecified; I10 Essential (primary) hypertension; Z79.899 Other long term (current) drug therapy; Z87.891 Personal history of nicotine dependence
CPT/HCPCS: 64415; 76942; 80048; 85025; 85652; 86140; 87070; 87075; 87205

== ENCOUNTER 2020-07-24 08:32 | Emergency (ER) | payer MEDICARE ==
[2020-07-24 08:42] VITALS: BP 135/66; PULSE 57; RESP 16; TEMP 98.1
[2020-07-24] MEDS ORDERED: MORPHINE SULFATE 2 MG/ML SYRINGE IM STA (08:53)
--- NOTE | 2020-07-24 09:11 | XR ---
EXAMINATION TYPE: XR shoulder complete RT DATE OF EXAM: 07/24/2020 CLINICAL HISTORY: History of prior fracture with pain after falling tree. TECHNIQUE: Three views of the right shoulder are obtained. COMPARISON: None. FINDINGS: There is no acute fracture/dislocation evident in the right shoulder. Mild to moderate jelena rowing at acromioclavicular joint with mild to moderate spurring. Old nonunion fracture distal right clavicle noted. Glenohumeral joint maintained. The visualized ribs are intact and unremarkable. IMPRESSION: There is no acute fracture or dislocation in the right shoulder.
[2020-07-24] MEDS ORDERED: ACET/COD 300 MG/30 MG STARTER PACK 6 TAB BTL PO STA (09:27)
--- NOTE | 2020-07-24 09:27 | ED ---
Upper Extremity HPI - General Chief Complaint: Extremity Injury, Upper Stated Complaint: Shoulder Injury Time Seen by Provider: 07/24/20 08:49 Source: patient Mode of arrival: ambulatory Limitations: no limitations - History of Present Illness Initial Comments: 65 or male presenting today for chief complaint of right shoulder pain. Patient states that he fell yesterday when his foot got caught in his lawnmower. Patient states he did hit his back this had he states he did not believe it was hard he denies loss of consciousness headache visual changes nausea vomiting he denies any neck pain. Patient states he is not concerned about his head he states he has had anterior right shoulder pain since the fall. Patient denies any numbness tingling or loss of sensation of the shoulder. Denies weakness but endorses significant pain with attempt at ROM. Admits to previous right clavicular fracture. Patient left hand dominant. Patient has no additional complaints. Denies additional injuries. - Related Data Home Medications Medication Instructions Recorded Confirmed Atenolol [Tenormin] 100 mg PO HS 01/12/20 03/06/20 Citalopram Hydrobromide [CeleXA] 40 mg PO HS 01/12/20 03/06/20 Cyclobenzaprine [Flexeril] 10 mg PO TID PRN 01/12/20 03/06/20 EPINEPHrine (Auto Inject) [Epipen] 0.3 mg IM ONCE PRN 01/12/20 03/06/20 Furosemide [Lasix] 40 mg PO DAILY PRN 01/12/20 03/06/20 HYDROcodone/APAP 7.5-325MG [Ridgeway 1 tab PO Q6HR PRN 01/12/20 03/06/20 7.5-325] Phenytoin Sodium Extended 400 mg PO HS 01/12/20 03/06/20 [Dilantin] RABEprazole SODIUM [Aciphex] 20 mg PO HS 01/12/20 03/06/20 traMADol HCL [Ultram] 50 mg PO Q8HR PRN 01/12/20 03/06/20 ARIPiprazole [Abilify] 5 mg PO HS 03/06/20 03/06/20 LORazepam [Ativan] 2 mg PO HS 03/06/20 03/06/20 amLODIPine BESYLATE/BENAZEPRIL 1 cap PO HS 03/06/20 03/06/20 [Lotrel 10-20 MG] cefTRIAXone [Rocephin] 2 gm IVPB Q24H 03/06/20 03/06/20 rOPINIRole HCL [Requip] 2 mg PO BID 03/08/20 03/08/20 Previous Rx's Medication Instructions Recorded hydroCHLOROthiazide [Hydrodiuril] 25 mg PO DAILY #10 tab 03/08/20 Hydrocodone/Acetaminophen [Ridgeway 1 each PO Q6H PRN #28 tab 03/09/20 10-325] Allergies Allergy/AdvReac Type Severity Reaction Status Date / Time bee venom protein (honey bee) Allergy Anaphylaxis Verified 03/06/20 10:53 Penicillins Allergy Anaphylaxis Verified 03/06/20 10:53 Review of Systems ROS Statement: Those systems with pertinent positive or pertinent negative responses have been documented in the HPI. ROS Other: All systems not noted in ROS Statement are negative. Past Medical History Past Medical History: Hypertension Additional Past Medical History / Comment(s): steroid Dec 2019,left shoulder pain,chronic back pain History of Any Multi-Drug Resistant Organisms: None Reported Past Surgical History: Adenoidectomy, Appendectomy, Back Surgery, Joint Replacement, Orthopedic Surgery, Tonsillectomy Additional Past Surgical History / Comment(s): hardware lumbar area,rt knee procedures x7,lt knee proceduresx3,left knee replaced x2,sinus procedures x2, mary carpel tunnel,tendon repair mary hands,mary feet procedures Past Anesthesia/Blood Transfusion Reactions: No Reported Reaction Additional Past Anesthesia/Blood Transfusion Reaction / Comment(s): no hx blood transfusion Past Psychological History: Anxiety Smoking Status: Former smoker Past Alcohol Use History: Occasional Past Drug Use History: None Reported - Past Family History Mother Family Medical History: Cancer Father Family Medical History: Cancer General Exam - General Exam Comments Initial Comments: General: The patient is awake and alert, in no distress, and does not appear acutely ill. Eye: Pupils are equal, round and reactive to light, extra-ocular movements are intact. No nystagmus. There is normal conjunctiva bilaterally. No signs of icterus. Respiratory: Lungs are clear to auscultation, respirations are non-labored, breath sounds are equal. No wheezes, stridor, rales, or rhonchi. Gastrointestinal: Soft, non-distended, non-tender abdomen without masses or organomegaly noted. There is no rebound or guarding present. Musculoskeletal: Refuses to full range at the right shoulder secondary to pain, full rom at elbows wrists. Strength 5/5 of the elbows/wrists b/l--refuses to full strength or range at the right shoulde secondary to pain. Sensation intact of the UE equal in comparison b/l. Patient is able to make the okay fingers crossed thumbs-up oppose the small digit and thumb. Patient has no badge anesthesia. Radialulses equal bilaterally 2+. Neurological: A&O x 3. CN II-XII intact grossly, There are no obvious motor or sensory deficits. Coordination appears grossly intact. Speech is normal. Skin: Skin is warm and dry and no rashes or lesions are noted. Psychiatric: Cooperative, appropriate mood & affect, normal judgment. Limitations: no limitations Course Vital Signs 07/24/20 08:39 Temperature 98.1 F Pulse Rate 57 L Respiratory 16 Rate Blood Pressure 135/66 O2 Sat by Pulse 98 Oximetry Medical Decision Making - Medical Decision Making Patient neurovascular intact, compartments soft and compressible. Strength appears intact, patient refused to fully strength test of the right shoulder sec ondary to pain XR (-) for acute process.Old fracture with malunion appreciated. Refuses CT of head neck, states no concerned of head/neck injury. Patient will be discharged with sling for comfort/symptomatic treatment instruction. Return parameters discussed case discussed with Jennie Louis we reviewed imaging Dr. Louis is agreeable to care plan and discharge. Disposition Clinical Impression: Right shoulder pain, Fall Disposition: HOME SELF-CARE Condition: Good Instructions (If sedation given, give patient instructions): Shoulder Pain (ED) Additional Instructions: Please use medication as discussed. Please follow-up with family doctor in the next 2 days, and orthopedic surgery as discussed. Wear sling for comfort Please return to emergency room if the symptoms increase or worsen or for any other concerns. Is patient prescribed a controlled substance at d/c from ED?: No Referrals: Nonstaff,Physician [Primary Care Provider] - 1-2 days Alexi Bourgeois MD [STAFF PHYSICIAN] - 1-2 days Time of Disposition: 09:27
== END 2020-07-24 09:38 | disposition home or self-care (01) ==
LOC: EC 08:32
DX: M25.511 Pain in right shoulder (principal); F41.9 Anxiety disorder, unspecified; I10 Essential (primary) hypertension; Z79.899 Other long term (current) drug therapy; Z87.891 Personal history of nicotine dependence; Z96.652 Presence of left artificial knee joint; Z88.0 Allergy status to penicillin; Z91.030 Bee allergy status; W28.XXXA Contact with powered lawn mower, initial encounter
CPT/HCPCS: 73030; 96372; 99283; J2270

== ENCOUNTER → 2020-08-03 | Day surgery (SDC) | payer MEDICARE ==
[2020-08-01 14:19] VITALS: BMI 46.7
[~2020-08-03] MED LIST changes: -ACETAMINOPHEN TAB 500 MG TAB PO ONE; -CLINDAMYCIN 900 MG in DEXTROSE 5% IN WATER 50 ML IVPB ONE; -DEXAMETHASONE SOD PHOSPHATE 10 MG/ML 1 ML VIAL IV ONE; +LACTATED RINGERS 1,000 ML IV SCH; -MELOXICAM 7.5 MG TAB PO ONE; -ONDANSETRON 4 MG/2 ML VIAL IVP ONE; +PROPOFOL 10 MG/ML 20 ML VIAL IV ONE; -SCOPOLAMINE 1.5MG/72HR PATCH TRANSDERM ONE; -TRANEXAMIC ACID 1,000 MG in SODIUM CHLORIDE 0.9% 100 ML IVPB ONE
[2020-08-03 07:03] VITALS: TEMP 97.3
--- NOTE | 2020-08-03 07:32 | P.PCN ---
Date of Procedure: 08/03/20 Procedure(s) Performed: BRIEF HISTORY: Patient is a 65-year-old pleasant male scheduled for an elective colonoscopy as a part of screening for colorectal neoplasia. PROCEDURE PERFORMED: Colonoscopy. PREOPERATIVE DIAGNOSIS: Screening for colon cancer. IV sedation per Anesthesia. PROCEDURE: After informed consent was obtained, the patient, was brought into the endoscopy unit. IV sedation was administered by Anesthesia under continuous monitoring. Digital rectal examination was normal. Initially the Olympus CF-160 flexible video colonoscope was then inserted in the rectum, gradually advanced into the cecum without any difficulty. Careful examination was performed as the scope was gradually being withdrawn. Ileocecal valve and the appendiceal orifice were visualized and appeared normal. Prep was excellent. Mucosa of the cecum, ascending colon, transverse colon, descending colon, sigmoid colon, and rectum appeared normal. Scattered sigmoid diverticulosis. Retroflexion was performed in the rectum and no lesions were seen. The patient tolerated the procedure well. IMPRESSION: Normal-appearing colon from rectum to cecum with no evidence of colorectal neoplasia. Scattered sigmoid diverticulosis. RECOMMENDATIONS: Findings of this examination were discussed with the patient. He was advised to have a repeat screening colonoscopy in 10 years. .
[2020-08-03 07:39] VITALS: RESP 16
[2020-08-03 07:58] VITALS: BP 117/76; PULSE 70
== END ==
LOC: ORWHC2ENDO 06:21
PROVIDERS: ATTEND Internal Medicine Gastroenterology
DX: Z12.11 Encounter for screening for malignant neoplasm of colon (principal); K57.30 Diverticulosis of large intestine without perforation or abscess without bleeding; Z86.010 Personal history of colon polyps; I10 Essential (primary) hypertension; F41.9 Anxiety disorder, unspecified; R56.9 Unspecified convulsions; K21.9 Gastro-esophageal reflux disease without esophagitis; E66.9 Obesity, unspecified; Z88.0 Allergy status to penicillin; Z79.891 Long term (current) use of opiate analgesic; Z79.899 Other long term (current) drug therapy; Z91.030 Bee allergy status; Z87.891 Personal history of nicotine dependence; Z98.1 Arthrodesis status; Z68.42 Body mass index [BMI] 45.0-49.9, adult
CPT/HCPCS: J2704; G0105

== ENCOUNTER → 2020-11-05 | Outpatient (CLI) | payer MEDICARE ==
[2020-11-05 15:42] LABS: Phenytoin (Dilantin) 1.6 ug/mL (10.0-20.0)
[2020-11-05 15:49] LABS: African American GFR (CKD) 90.5 (60.0-200.0); Albumin 4.4 g/dL (3.80-4.90); Albumin/Globulin Ratio 1.47 (1.60-3.17); Anion Gap 10.3 mmol/L (4.00-12.00); Calcium 9.4 mg/dL (8.7-10.3); Carbon Dioxide 31.7 mmol/L (21.6-31.8); Chol/HDL Ratio 4.42; LDL Cholesterol,Calculated 97.2 mg/dL (0.0-131.0); Non-African American GFR(CKD) 78.1 (60.0-200.0); Potassium 4.1 mmol/L (3.5-5.5); Total Bilirubin 0.6 mg/dL (0.2-1.2); Total Protein 7.4 g/dL (6.2-8.2); VLDL Calculation 25.8 mg/dL (5.00-40.00)
[2020-11-05 15:57] LABS: PSA Annual Screen 0.5 ng/mL (0.0-4.0)
[2020-11-05 16:11] LABS: Urine Creatinine 168.3 mg/dL
[2020-11-05 20:32] LABS: Hemoglobin A1C 4.8 % (4.0-6.0)
== END | disposition home or self-care (01) ==
LOC: LABWHC1 08:24
PROVIDERS: ATTEND Family Medicine
DX: I12.9 Hypertensive chronic kidney disease with stage 1 through stage 4 chronic kidney disease, or unspecified chronic kidney disease (principal); N18.9 Chronic kidney disease, unspecified; E78.2 Mixed hyperlipidemia; Z12.5 Encounter for screening for malignant neoplasm of prostate; G40.301 Generalized idiopathic epilepsy and epileptic syndromes, not intractable, with status epilepticus; R73.01 Impaired fasting glucose
CPT/HCPCS: 80061; 80053; 80185; 84443; 82043; 82570; 83036; 36415; G0103

== ENCOUNTER → 2021-04-16 | Outpatient (CLI) | payer MEDICARE | END | disposition home or self-care (01) | LOC: LABWHC1 07:37 | PROVIDERS: ATTEND Family Medicine | DX: Z53.9 Procedure and treatment not carried out, unspecified reason (principal) ==

== ENCOUNTER → 2021-05-06 | Outpatient (CLI) | payer MEDICARE ==
[2021-05-06 14:53] LABS: Basophils # (A) 0.07 X 10*3/uL (0.00-0.10); Basophils % (A) 0.8 %; Eosinophils # (A) 0.32 X 10*3/uL (0.04-0.35); Eosinophils % (A) 3.5 %; HCT 40.8 % (39.6-50.0); Lymphocytes % (A) 22.8 %; MCH 32.1 pg (27.0-32.0); MCHC 31.9 g/dL (32.0-37.0); MCV 100.7 fL (80.0-97.0); Mean Platelet Volume 11.1 fL (9.5-12.2); Monocytes # (A) 0.79 X 10*3/uL (0.20-1.00); Monocytes % (A) 8.6 %; Neutrophils # (A) 5.92 X 10*3/uL (1.80-7.70); Platelet Count 185 X 10*3/uL (140-440); RBC 4.05 X 10*6/uL (4.40-5.60); RDW 13.2 % (11.5-14.5); WBC 9.23 X 10*3/uL (4.50-10.00)
[2021-05-06 15:15] LABS: African American GFR (CKD) 89.9 (60.0-200.0); Albumin 4.4 g/dL (3.80-4.90); Albumin/Globulin Ratio 1.47 (1.60-3.17); Calcium 9.2 mg/dL (8.7-10.3); Chol/HDL Ratio 4.44; LDL Cholesterol,Calculated 83.4 mg/dL (0.0-131.0); Non-African American GFR(CKD) 77.5 (60.0-200.0); Potassium 4.7 mmol/L (3.5-5.5); Total Bilirubin 0.5 mg/dL (0.2-1.2); Total Protein 7.4 g/dL (6.2-8.2); VLDL Calculation 26.6 mg/dL (5.00-40.00)
[2021-05-06 16:01] LABS: Urine Creatinine 91.4 mg/dL
== END | disposition home or self-care (01) ==
LOC: LABWHC1 09:07
PROVIDERS: ATTEND Family Medicine
DX: I12.9 Hypertensive chronic kidney disease with stage 1 through stage 4 chronic kidney disease, or unspecified chronic kidney disease (principal); N18.9 Chronic kidney disease, unspecified; R73.01 Impaired fasting glucose
CPT/HCPCS: 36415; 80053; 80061; 82043; 82570; 83525; 85025

== ENCOUNTER → 2022-03-26 | Outpatient (CLI) | payer MEDICARE ==
[2022-03-26 10:34] LABS: Basophils # (A) 0.08 X 10*3/uL (0.00-0.10); Basophils % (A) 0.9 %; Eosinophils # (A) 0.32 X 10*3/uL (0.04-0.35); Eosinophils % (A) 3.8 %; HCT 42.9 % (39.6-50.0); HGB 14.2 g/dL (13.0-17.0); Immature Grans, Automated 0.2 %; Lymphocytes # (A) 2.34 X 10*3/uL (0.90-5.00); Lymphocytes % (A) 27.5 %; MCH 32.1 pg (27.0-32.0); MCHC 33.1 g/dL (32.0-37.0); MCV 97.1 fL (80.0-97.0); Mean Platelet Volume 10.4 fL (9.5-12.2); Monocytes # (A) 0.82 X 10*3/uL (0.20-1.00); Monocytes % (A) 9.6 %; NRBC Per 100 WBC 0 /100 WBCS (0.0-0.0); Neutrophils # (A) 4.93 X 10*3/uL (1.80-7.70); Platelet Count 177 X 10*3/uL (140-440); RBC 4.42 X 10*6/uL (4.40-5.60); RDW 12.6 % (11.5-14.5); WBC 8.51 X 10*3/uL (4.50-10.00)
[2022-03-26 10:55] LABS: ALT 10 U/L (10-49); AST 24 U/L (14-35); African American GFR (CKD) 98.8 (60.0-200.0); Albumin 4.5 g/dL (3.8-4.9); Albumin/Globulin Ratio 1.56 (1.60-3.17); Alkaline Phosphatase 117 U/L (41-126); BUN/Creat Ratio 16.97 Ratio (12.00-20.00); Blood Urea Nitrogen 15.7 mg/dL (9.0-27.0); Calcium 9.3 mg/dL (8.7-10.3); Carbon Dioxide 32.3 mmol/L (20.0-27.5); Chloride 98 mmol/L (96-109); Chol/HDL Ratio 3.84 Ratio; Globulin 2.9 g/dL (1.6-3.3); Glucose 102 mg/dL (70-110); LDL Cholesterol,Calculated 85.9 mg/dL (0.0-131.0); Non-African American GFR(CKD) 85.2 (60.0-200.0); Potassium 4.2 mmol/L (3.5-5.5); Sodium 139 mmol/L (135-145); Total Protein 7.4 g/dL (6.2-8.2)
== END | disposition home or self-care (01) ==
LOC: LABWHC1 06:57
PROVIDERS: ATTEND Family Medicine
DX: Z12.5 Encounter for screening for malignant neoplasm of prostate (principal); N18.2 Chronic kidney disease, stage 2 (mild); I12.9 Hypertensive chronic kidney disease with stage 1 through stage 4 chronic kidney disease, or unspecified chronic kidney disease; E78.2 Mixed hyperlipidemia
CPT/HCPCS: 80061; 80053; 84443; 85025; 36415; G0103

== ENCOUNTER → 2023-03-27 | Outpatient (CLI) | payer MEDICARE ==
[2023-03-27 15:16] LABS: Basophils # (A) 0.08 X 10*3/uL (0.00-0.10); Basophils % (A) 0.9 %; Eosinophils # (A) 0.26 X 10*3/uL (0.04-0.35); Eosinophils % (A) 2.8 %; HCT 43.2 % (39.6-50.0); HGB 14.5 g/dL (13.0-17.0); Immature Grans, Automated 0.3 %; Lymphocytes # (A) 1.99 X 10*3/uL (0.90-5.00); Lymphocytes % (A) 21.8 %; MCH 32.2 pg (27.0-32.0); MCHC 33.6 g/dL (32.0-37.0); Mean Platelet Volume 10.7 fL (9.5-12.2); Monocytes # (A) 0.87 X 10*3/uL (0.20-1.00); Monocytes % (A) 9.5 %; NRBC Per 100 WBC 0 /100 WBCS (0.0-0.0); Neutrophils # (A) 5.91 X 10*3/uL (1.80-7.70); Neutrophils % (A) 64.7 %; Platelet Count 171 X 10*3/uL (140-440); RDW 12.7 % (11.5-14.5); WBC 9.14 X 10*3/uL (4.50-10.00)
[2023-03-27 16:57] LABS: Microalbumin Creatinine Ratio <30 mg/g Creat (0-30); Urine Creatinine 58.6 mg/dL (39.0-259.0)
[2023-03-27 17:01] LABS: ALT 10 U/L (10-49); AST 24 U/L (14-35); African American GFR (CKD) 106.7 (60.0-200.0); Albumin 4.7 g/dL (3.8-4.9); Albumin/Globulin Ratio 1.84 (1.60-3.17); Alkaline Phosphatase 95 U/L (41-126); BUN/Creat Ratio 17.23 Ratio (12.00-20.00); Blood Urea Nitrogen 13.7 mg/dL (9.0-27.0); Calcium 9.6 mg/dL (8.7-10.3); Carbon Dioxide 32.9 mmol/L (20.0-27.5); Chloride 99 mmol/L (96-109); Chol/HDL Ratio 2.99 Ratio; Globulin 2.6 g/dL (1.6-3.3); Glucose 97 mg/dL (70-110); Potassium 3.8 mmol/L (3.5-5.5); Sodium 141 mmol/L (135-145); Total Protein 7.3 g/dL (6.2-8.2); VLDL Calculation 14.54 mg/dL (5.00-40.00)
== END | disposition home or self-care (01) ==
LOC: LABWHC1 09:26
PROVIDERS: ATTEND Family Medicine
DX: Z12.5 Encounter for screening for malignant neoplasm of prostate (principal); I12.9 Hypertensive chronic kidney disease with stage 1 through stage 4 chronic kidney disease, or unspecified chronic kidney disease; E78.2 Mixed hyperlipidemia; N18.9 Chronic kidney disease, unspecified
CPT/HCPCS: 80061; 80053; 84443; 85025; 82043; 82570; 36415; G0103

== ENCOUNTER → 2024-03-22 | Outpatient (CLI) | payer MEDICARE ==
[2024-03-22 16:21] LABS: ALT 14 U/L (10-49); AST 31 U/L (14-35); Albumin 4.6 g/dL (3.8-4.9); Albumin/Globulin Ratio 1.64 Ratio (1.60-3.17); Alkaline Phosphatase 86 U/L (41-126); BUN/Creat Ratio 20.33 Ratio (12.00-20.00); Blood Urea Nitrogen 18.3 mg/dL (9.0-27.0); Calcium 9.6 mg/dL (8.7-10.3); Carbon Dioxide 31.3 mmol/L (21.6-31.8); Chloride 98 mmol/L (96-109); Chol/HDL Ratio 2.69 Ratio; Globulin 2.8 g/dL (1.6-3.3); Glucose 92 mg/dL (70-110); LDL Cholesterol,Calculated 83.1 mg/dL (0.0-131.0); PSA Annual Screen 0.579 ng/mL (0.000-4.000); Potassium 3.7 mmol/L (3.5-5.5); Sodium 141 mmol/L (135-145); Total Bilirubin 0.6 mg/dL (0.3-1.2); Total Protein 7.4 g/dL (6.2-8.2); VLDL Calculation 19.32 mg/dL (5.00-40.00)
[2024-03-22 18:54] LABS: Microalbumin Creatinine Ratio <16 mg/g Cr (0-30); Urine Creatinine 74.6 mg/dL (39.0-259.0)
== END | disposition home or self-care (01) ==
LOC: LABWHC1 07:30
PROVIDERS: ATTEND Family Medicine
DX: Z12.5 Encounter for screening for malignant neoplasm of prostate (principal); I12.9 Hypertensive chronic kidney disease with stage 1 through stage 4 chronic kidney disease, or unspecified chronic kidney disease; E78.2 Mixed hyperlipidemia; N18.9 Chronic kidney disease, unspecified
CPT/HCPCS: 80061; 80053; 84443; 82043; 82570; 36415; G0103